=== PATIENT | male | born 1945 | race Caucasian/White ===

== ENCOUNTER 2017-09-08 16:45 | Inpatient (IN) ==
--- NOTE | 2017-09-09 00:42 | Internal Med History&Physical ---
Date of Encounter: 09/09/17 Time of Encounter: 00:41 Internal Medicine - H&P: HPI History of present illness: Mr. Wade is a 71 year old male with pmh of CHF, coronary artery disease, CVA, diabetes, hyperlipidemia, hypertension, kidney stones, myocardial infarction, renal disease, thyroid diseasea who presented with 1.5 week h/o Dyspnea with exertion. Positive orthopnea. PND. Also reports chest pain pressure like in character with exertion daily for the past 2 weeks. reports baseline cough. denies fevers/chills. Past Med Surg Social Fam HX - Past Medical History Medical history: CHF, coronary artery disease, CVA, diabetes, hyperlipidemia, hypertension, kidney stones, myocardial infarction, renal disease, thyroid disease Additional medical history: left side cva Psychiatric history: no psych history - Past Surgical History Surgical History: cancer surgery, colectomy, coronary bypass (CABG), orthopedic , other Additional surgical history: colon CA - Social History Smoking Status: Never smoker Smokeless Tobacco Status: No Alcohol use: none Drug use: none - Family History Mother Name: stephanie wade Living Status: Age at : 83 Cause of : pneumonia Hx Family Cardiac Disorders: No Hx Family Respiratory Disorders: Yes Internal Medicine - H&P: Meds Aspirin Enteric Coated [Aspirin EC] 81 mg PO DAILY 09/08/17 [History] Brimonidine Tartrate/Timolol [Combigan Eye Drops] 1 drop OP BID 09/08/17 [ History] Brinzolamide 1% [Azopt] 1 drop OP TID 09/08/17 [History] Budesonide/Formoterol 80/4.5 [Symbicort 80/4.5] 2 puff IH BID 09/08/17 [History ] Carvedilol [Coreg] 6.25 mg PO BIDWM 09/08/17 [History] Clopidogrel [Plavix] 75 mg PO DAILY 09/08/17 [History] Cyclobenzaprine [Flexeril] 10 mg PO TID PRN 09/08/17 [History] Diclofenac Sodium [Voltaren] 4 gm TP QID 09/08/17 [History] DiphenhydraMINE [Benadryl] 25 mg PO Q6HR PRN 09/08/17 [History] Ergocalciferol (VITAMIN D2) [Vitamin D2] 50,000 unit PO 2XW 09/08/17 [History] Esomeprazole Magnesium [Nexium] 40 mg PO DAILY 09/08/17 [History] Fenofibrate Nanocrystallized [Fenofibrate] 145 mg PO DAILY 09/08/17 [History] Fluticasone Propionate Nasal [Flonase] 1 - 2 spray NS DAILY 09/08/17 [History] Furosemide [Lasix] 40 mg PO QWEEK 09/08/17 [History] Gabapentin [Neurontin] 800 mg PO TID 09/08/17 [History] Insulin ASPART [Novolog Flexpen] 0 unit SQ TID 09/08/17 [History] Insulin Glargine,Hum.rec.anlog [Basaglar Kwikpen U-100] 50 unit SQ BID 09/08/17 [History] Isosorbide MONOnitrate (24 HR) [Imdur] 60 mg PO DAILY 09/08/17 [History] Latanoprost [Xalatan] 1 drop OP DAILY 09/08/17 [History] Levothyroxine [Synthroid] 150 mcg PO DAILY 09/08/17 [History] Lovastatin 40 mg PO DAILY 09/08/17 [History] Mirabegron [Myrbetriq] 50 mg PO DAILY 09/08/17 [History] Oxycodone HCl/Acetaminophen [Percocet 5-325 mg Tablet] 1 each PO QID PRN [History] Tamsulosin [Flomax] 0.4 mg PO DAILY 09/08/17 [History] Valsartan [Diovan] 320 mg PO DAILY 09/08/17 [History] hydrALAZINE [HydrALAZINE] 10 mg PO TID 09/08/17 [History] 3 Allergy/AdvReac Type Severity Reaction Status Date / Time No Known Allergies Allergy Verified 10/28/14 16:22 All Systems PM: A 10-system review of systems was performed and is negative for pertinent findings except as documented above in the HPI. - Constitutional Vitals: Temp Pulse Resp BP Pulse Ox 98.1 F 71 20 176/92 97 09/09/17 00:00 09/09/17 00:00 09/09/17 00:00 09/09/17 00:00 09/09/17 00:00 Internal Med - H&P Results - Labs CBC & Chem 7: 09/09/17 03:23 09/09/17 03:23 - Assessment and plan (1) Congestive heart failure Current Visit: No Status: Acute Assessment and plan: ASSESSMENT: - SOB associated with CP r/o CHF exacerbation due to DD R/O ischemia Noncompliance URTI PLAN: - CPP x 1 more, 8 hr after the 1st one - EKG in AM - ASA - O2 to keep SpO2 > 92% - Lasix 40 mg IV BID - Aerosols UD q 4 hr - UA - 2D Echo - CBCD, BMP in AM - Fasting lipids - Tylenol 650 mg PO q 4-6 hr PRN pain - Home meds - Heparin 5000 U SQ BID Qualifiers: Heart failure type: unspecified Heart failure chronicity: acute Qualified Code(s): I50.9 - Heart failure, unspecified (2) Chest pain Current Visit: Yes Status: Acute (3) Hyperlipidemia Current Visit: Yes Status: Acute (4) Diabetes mellitus Current Visit: Yes Status: Acute (5) Chronic kidney disease (CKD) Current Visit: Yes Status: Acute Assessment and plan: The creatinine is stable around baseline we will continue to monitor avoid nephrotoxic meds and renal dosing of medication as better current EGFR (6) Hypothyroidism Current Visit: Yes Status: Acute (7) DVT prophylaxis Current Visit: Yes Status: Acute Assessment and plan: heparin 5000 BID - Time Spent With Patient Total time spent is greater than 50% in coordination of care (as documented) at patient's floor/unit and/or counseling patient:
[2017-09-09] MEDS ORDERED: Naloxone 0.4 MG/ML INJ IVP PRN (02:55)
[2017-09-09 03:44] LABS: Hematocrit 33.3 % (37.5-50.1); Hemoglobin 10.9 g/dL (12.9-16.9); Mean Corpuscular HGB Conc 32.7 g/dL (31.6-35.5); Mean Corpuscular Hemoglobin 30.2 pg (28.0-33.3); Mean Corpuscular Volume 92.2 fL (83.0-100.0); Platelet Count 157 K/mcL (140-400); Red Blood Count 3.61 M/mcL (4.19-5.50); Red Cell Distribution Width 14.4 % (11.5-14.5)
[2017-09-09 03:59] LABS: Albumin 3.8 g/dL (3.5-5.7); Albumin/Globulin Ratio 1.3 (1.1-2.2); Bilirubin,Total 0.6 mg/dL (0.3-1.0); Calcium 9.7 mg/dL (8.6-10.3); Chol/HDL Ratio 4.4 (0-4.9); Globulin 2.9 g/dL (2.4-3.5); Magnesium 2.1 mg/dL (1.6-2.6); Phosphorous 3.8 mg/dL (2.7-4.5); Potassium 3.9 mEq/L (3.5-5.1); Prothrombin Time 11.8 Seconds (9.4-12.1); Total Protein 6.7 g/dL (6.4-8.9)
[2017-09-09 04:02] LABS: Activated Partial Thrombo Time 21.9 Seconds (26.0-36.0)
[2017-09-09] MEDS ORDERED: D5% in Water 1,000 ML IVC PRN (06:24)
[2017-09-09] MEDS ORDERED: *HR* Dextrose 50 % in Water (Syg) 50 ML SYRINGE IVP PRN (06:24)
[2017-09-09] MEDS ORDERED: Dextrose Gel 15 GM/37.5 ML TUBE PO PRN ×2 (06:24)
[2017-09-09] MEDS: Budesonide/Formoterol 80/4.5 MDI IH SCH ×2 (07:45→22:25)
[2017-09-09 08:01] LABS: Estimated Average Glucose 140 mg/dl; Hemoglobin A1C 6.5 %
[2017-09-09] MEDS: Insulin LISPRO 300 UNITS/3 ML VIAL SQ SCH ×4 (08:30→21:26)
[2017-09-09] MEDS: Brinzolamide 1% 10 ML BOTTLE BOTH EYES SCH ×3 (08:49→21:25)
[2017-09-09] MEDS: Latanoprost 2.5 ML BOTTLE BOTH EYES SCH (08:50)
[2017-09-09] MEDS: Fluticasone Propionate Nasal 50 MCG/SPRAY BOTTLE NS SCH (08:51)
[2017-09-09] MEDS: Aspirin Enteric Coated 81 MG Tablet PO SCH (08:52)
[2017-09-09] MEDS: Gabapentin 400 MG CAPSULE PO SCH ×3 (08:52→21:24)
[2017-09-09] MEDS: Fenofibrate 54 MG TABLET PO SCH (08:52)
[2017-09-09] MEDS: Valsartan 160 MG TABLET PO SCH (08:53)
[2017-09-09] MEDS: *HR* OxyCODONE/APAP 5/325 TABLET PO PRN ×3 (08:53→21:24)
[2017-09-09] MEDS: Isosorbide MONOnitrate (24 HR) 60 MG TAB.ER.24H PO SCH (08:53)
[2017-09-09] MEDS: Furosemide 40 MG/4 ML VIAL IVP SCH (08:53)
[2017-09-09] MEDS: Insulin DETEMIR 100 UNIT/ML X5UNITS SQ SCH ×2 (08:54→21:26)
[2017-09-09 08:55] LABS: Bilirubin,Urine Negative (Negative); Blood,Urine Negative (Negative); Clarity,Urine Clear (Clear); Color,Urine Yellow (Yellow); Glucose,Urine (UA) Normal (Normal); Ketones,Urine Negative (Negative); Leukocyte Esterase,Urine Negative (Negative); Nitrite,Urine Negative (Negative); Protein,Urine 30 mg/dL (Neg-Trace); Urobilinogen,Urine Normal (Normal)
[2017-09-09] MEDS: Diclofenac Sodium [Voltaren] 4 GM TP SCH ×4 (08:55→23:39)
[2017-09-09 08:59] LABS: Bacteria,Urine None Seen per hpf (None-Few); Hyaline Casts,Urine None Seen per lpf (None-Few); Squamous Epithelial Cell,Urine Moderate per lpf (None-Few); WBC,Urine 0-3 per hpf (0-3)
[2017-09-09] MEDS ORDERED: NON-FORMULARY MEDICATION 1 EACH EACH (Insulin Glargine,Hum.Rec.Anlog [Basaglar Kwikpen U-1 SQ SCH (09:00)
--- NOTE | 2017-09-09 17:35 | Event Note ---
Date of Encounter: 09/09/17 Time of Encounter: 09:45 71-year-old male with history of CAD/CABG, CHF, diabetes, hypertension, admitted with worsening shortness of breath. Patient is being treated for acute exacerbation of CHF. Seen and examined at bedside. Reports improvement in shortness of breath. Does have some leg swelling. Follows with cardiology in [place]. Chest- S1, S2 heard; Lungs are clear to auscultation B/L Acute CHF- continue diuresis with IV Lasix. Start fluid restriction and urine output monitoring. Follow-up echocardiogram. Continue beta verónica and nitrate. Telemetry monitoring. Serial troponins flat and adynamic, at around 0.06.
[2017-09-09] MEDS: *HR* Heparin 5,000 UNIT/ML VIAL SQ SCH (17:56)
[2017-09-10 04:32] LABS: Basophils % 0.6 %; Eosinophils # 0.2 K/mcL (0.0-0.6); Hematocrit 30.5 % (37.5-50.1); Immature Granulocytes % 0.2 % (0-4); Lymphocytes # 1.2 K/mcL (0.6-4.6); Lymphocytes % 25.5 %; Mean Corpuscular HGB Conc 32.8 g/dL (31.6-35.5); Mean Corpuscular Hemoglobin 30.9 pg (28.0-33.3); Mean Corpuscular Volume 94.1 fL (83.0-100.0); Mean Platelet Volume 11.4 fL (9.4-12.4); Monocytes # 0.6 K/mcL (0.0-1.3); Monocytes % 12.2 %; Neutrophils # 2.7 K/mcL (1.6-8.9); Platelet Count 156 K/mcL (140-400); Red Blood Count 3.24 M/mcL (4.19-5.50); Red Cell Distribution Width 14.2 % (11.5-14.5); Segmented Neutrophils % 57.5 %
[2017-09-10 04:54] LABS: Calcium 9.3 mg/dL (8.6-10.3); Magnesium 2.3 mg/dL (1.6-2.6); Potassium 4.3 mEq/L (3.5-5.1)
--- NOTE | 2017-09-10 06:21 | Electrocardiograph Report ---
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
[2017-09-10] MEDS: *HR* Heparin 5,000 UNIT/ML VIAL SQ SCH ×2 (06:34→16:59)
[2017-09-10] MEDS: Budesonide/Formoterol 80/4.5 MDI IH SCH ×2 (07:47→20:32)
[2017-09-10] MEDS: Insulin LISPRO 300 UNITS/3 ML VIAL SQ SCH ×4 (08:18→22:01)
[2017-09-10] MEDS: Aspirin Enteric Coated 81 MG Tablet PO SCH (08:19)
[2017-09-10] MEDS: Furosemide 40 MG/4 ML VIAL IVP SCH (08:19)
[2017-09-10] MEDS: Isosorbide MONOnitrate (24 HR) 60 MG TAB.ER.24H PO SCH (08:19)
[2017-09-10] MEDS: Valsartan 160 MG TABLET PO SCH (08:19)
[2017-09-10] MEDS: Gabapentin 400 MG CAPSULE PO SCH ×3 (08:19→22:01)
[2017-09-10] MEDS: Fenofibrate 54 MG TABLET PO SCH (08:19)
[2017-09-10] MEDS: Brinzolamide 1% 10 ML BOTTLE BOTH EYES SCH ×3 (08:22→22:01)
[2017-09-10] MEDS: Fluticasone Propionate Nasal 50 MCG/SPRAY BOTTLE NS SCH (08:22)
[2017-09-10] MEDS: Latanoprost 2.5 ML BOTTLE BOTH EYES SCH (08:23)
[2017-09-10] MEDS: Diclofenac Sodium [Voltaren] 4 GM TP SCH ×2 (08:23→19:49)
[2017-09-10] MEDS: Insulin DETEMIR 100 UNIT/ML X5UNITS SQ SCH (08:27)
--- NOTE | 2017-09-10 08:29 | Internal Med Progress Note ---
<Eileen Hernandez N - Last Filed: 09/10/17 18:40> Date of Encounter: 09/10/17 Time of Encounter: 09:40 - Assessment and plan (1) Congestive heart failure Current Visit: No Status: Acute Assessment and plan: Continue diuresis with lasix with strict I & O's and daily weights. He remains hypervolemic with moderate edema. Cumulative I's & O's are -240. Will monitor kidney function closely with daily BMP. Urine output relatively low; will reassess tomorrow and consider nephrology consult if not improved. Qualifiers: Heart failure type: unspecified Heart failure chronicity: acute Qualified Code(s): I50.9 - Heart failure, unspecified (2) Chronic kidney disease (CKD) Current Visit: Yes Status: Acute Qualifiers: Chronic kidney disease stage: unspecified stage Qualified Code(s): N18.9 - Chronic kidney disease, unspecified (3) Chest pain Current Visit: Yes Status: Resolved Assessment and plan: Resolved. Qualifiers: Qualified Code(s): R07.89 - Other chest pain; R07.81 - Pleurodynia (4) Hyperlipidemia Current Visit: Yes Status: Acute Assessment and plan: Continue home medication. Will check fasting lipids tomorrow morning. Qualifiers: Qualified Code(s): E78.5 - Hyperlipidemia, unspecified (5) Diabetes mellitus Current Visit: Yes Status: Acute Assessment and plan: Continue home insulin regimen along with sliding scale insulin and accuchecks ACHS. Consider changing insulin regimen if good glycemic control is not acheived. Qualifiers: Qualified Code(s): E11.9 - Type 2 diabetes mellitus without complications; Z79.4 - USP (current) use of insulin (6) DVT prophylaxis Current Visit: Yes Status: Acute Assessment and plan: Heparin BID. (7) Hypothyroidism Current Visit: Yes Status: Acute Assessment and plan: Continue home medication therapy. Qualifiers: Qualified Code(s): E03.9 - Hypothyroidism, unspecified - Time Spent With Patient Total time spent is greater than 50% in coordination of care (as documented) at patient's floor/unit and/or counseling patient: - Subjective Interval history: Mr. Wade is a 71-year old male who was admitted with an acute exacerbation of CHF after a 1.5 weeks of progressive exertional dyspnea. He reports improvement in symptoms today, though he is still having some shortness of breath with exertion. He denies any chest pain. He has bilateral lower extremity edema that is non-pitting, which he states is normal for him. He denies any fevers and reports a good appetite. He denies any new complaints or concerns today. - Constitutional Vitals: Temp Pulse Resp BP Pulse Ox 97.8 F 59 16 117/62 95 09/10/17 07:25 09/10/17 07:25 09/10/17 07:47 09/10/17 07:25 09/10/17 07:47 Exam: Patient is sleeping comfortably but rouses easily to voice. He is alert and answers questions appropriately and does not appear to be in distress. - Head Additional comments: Atraumatic and normocephalic. - Respiratory Additional comments: Clear to auscultation bilaterally. - Cardiovascular Additional comments: Regular rate and rhythm. Mild murmur appreciated. - Extremities Exam Additional comments: Bilateral lower extremity edema. Patient denies pain to palpation. - Neurological Exam Additional comments: Patient moves all four extremities spontaneously. No apparent focal deficits. Internal Medicine: Result - Labs CBC & Chem 7: 09/10/17 04:12 09/10/17 04:12 Labs: Short CBC 09/10/17 Range/Units 04:12 WBC 4.8 (4.3-11.1) K/mcL Hgb 10.0 L (12.9-16.9) g/dL Hct 30.5 L (37.5-50.1) % Plt Count 156 (140-400) K/mcL Neutrophils # 2.7 (1.6-8.9) K/mcL BMP 09/10/17 04:12 Sodium 141 Potassium 4.3 Chloride 107 Carbon Dioxide 26 BUN 46 H Creatinine 2.40 H Glucose 169 H Calcium 9.3 Cardiac Enzymes 09/09/17 09/09/17 Range/Units 09:13 14:55 Troponin I 0.06 H* 0.06 H* (< 0.04) ng/mL Urine 09/09/17 Range/Units 08:20 Urine Color Yellow (Yellow) Urine Clarity Clear (Clear) Urine pH 7.0 (5.0-8.0) pH Units Ur Specific [place] 1.020 (1.010-1.025) Urine Protein 30 H (Neg-Trace) mg/dL Urine Glucose (UA) Normal (Normal) mg/dL - ABG Interpretation ABG results: PT/INR, D-dimer PT 11.8 Seconds (9.4-12.1) 09/09/17 03:23 - Impressions Impressions Echocardiogram 09/09/17 06:44 Impressions: LVEF 60%. Normal LV chamber size and function. Mild concentric left ventricular hypertrophy. Mild left ventricular diastolic dysfunction. Normal right ventricular structure and function. Unable to estimate RVSP due to lack of TR jet. No significant valvular dysfunction. Left Ventricular Wall Motion: Rest Echo Findings All wall segments showed normal motion. Findings: Study Quality * Technically adequate exam. ECG Findings * Normal sinus rhythm. Left Ventricle * LVEF 60%. * Normal LV chamber size and function. * Mild concentric left ventricular hypertrophy. * Mild left ventricular diastolic dysfunction. Right Ventricle * Normal right ventricular structure and function. Left Atrium * Severely dilated left atrium. Right Atrium * Moderately dilated right atrium. Aortic Valve * Trileaflet aortic valve. * Mildly calcified aortic valve leaflets. * Trace aortic regurgitation. * No aortic stenosis. Mitral Valve * Normal mitral valve structure and function. * No mitral stenosis. * Trace mitral regurgitation. Tricuspid Valve * Normal tricuspid valve structure and function. * No tricuspid regurgitation. * Unable to estimate RVSP due to lack of TR jet. Pulmonic Valve * Normal pulmonic valve structure and function. * No pulmonic regurgitation. Aorta * Normally sized aortic root. Pericardium * The pericardium appears normal. IVC * Normal IVC dimensions and inspiratory collapse. Pulmonary Artery * Normal visualized portions of the main pulmonary artery. Consult Discharge Plan - Plan Referrals: Poly Rodrigues MD [Primary Care Provider] - <Rc Cruz - Last Filed: 09/10/17 19:00> Date of Encounter: 09/10/17 - Assessment and plan (1) Congestive heart failure Current Visit: No Status: Acute Qualifiers: Heart failure type: diastolic Heart failure chronicity: acute on chronic Qualified Code(s): I50.33 - Acute on chronic diastolic (congestive) heart failure (2) Chest pain Current Visit: Yes Status: Resolved Qualifiers: Chest pain type: chest pain on breathing Qualified Code(s): R07.1 - Chest pain on breathing; R07.81 - Pleurodynia (3) Hyperlipidemia Current Visit: Yes Status: Chronic Qualifiers: Hyperlipidemia type: mixed hyperlipidemia Qualified Code(s): E78.2 - Mixed hyperlipidemia (4) Diabetes mellitus Current Visit: Yes Status: Chronic Qualifiers: Diabetes mellitus type: type 2 Diabetes mellitus prison insulin use: with prison use Diabetes mellitus complication status: with hyperglycemia Qualified Code(s): E11.65 - Type 2 diabetes mellitus with hyperglycemia; Z79.4 - intermediate project manager (current) use of insulin (5) Chronic kidney disease (CKD) Current Visit: Yes Status: Chronic Qualifiers: Chronic kidney disease stage: stage 3 (moderate) Qualified Code(s): N18.3 - Chronic kidney disease, stage 3 (moderate) (6) DVT prophylaxis Current Visit: Yes Status: Acute (7) Hypothyroidism Current Visit: Yes Status: Chronic Qualifiers: Hypothyroidism type: acquired Qualified Code(s): E03.9 - Hypothyroidism, unspecified - Time Spent With Patient Total time spent is greater than 50% in coordination of care (as documented) at patient's floor/unit and/or counseling patient: - Constitutional Vitals: Temp Pulse Resp BP Pulse Ox 97.8 F 68 16 124/64 96 09/10/17 15:41 09/10/17 15:41 09/10/17 15:41 09/10/17 15:41 09/10/17 15:41 Internal Medicine: Result - Labs CBC & Chem 7: 09/10/17 04:12 09/10/17 04:12 Labs: Short CBC 09/10/17 Range/Units 04:12 WBC 4.8 (4.3-11.1) K/mcL Hgb 10.0 L (12.9-16.9) g/dL Hct 30.5 L (37.5-50.1) % Plt Count 156 (140-400) K/mcL Neutrophils # 2.7 (1.6-8.9) K/mcL BMP 09/10/17 04:12 Sodium 141 Potassium 4.3 Chloride 107 Carbon Dioxide 26 BUN 46 H Creatinine 2.40 H Glucose 169 H Calcium 9.3 - ABG Interpretation ABG results: PT/INR, D-dimer PT 11.8 Seconds (9.4-12.1) 09/09/17 03:23 - Attending Attestation I examined this patient and my medical decision-making was reviewed with the Resident Physician on 09/10/17. I agree with the documented findings, disposition and treatment plan as described except to the extent set forth below. Mr Wade is currently admitted for acute exac CHF. He remains moderate to high risk due to potential for worsening clinical status. Mr Wade is beginning to breathe better but still has a lot of fluid. No fever or chills. Edema still present. Lying back better. Exam alert Comfortable at rest Mucus membranes dry Heart distant Lungs with rales Abd soft Edema present I/P 1. CHF exac Further diagnoses and plan as above Anticipate d/c in 1-2 days
[2017-09-10] MEDS: *HR* OxyCODONE/APAP 5/325 TABLET PO PRN (22:04)
[2017-09-11 04:27] LABS: Potassium 4.7 mEq/L (3.5-5.1)
[2017-09-11] MEDS: *HR* Heparin 5,000 UNIT/ML VIAL SQ SCH ×2 (06:11→17:46)
--- NOTE | 2017-09-11 07:58 | Internal Med Progress Note ---
<Rc Cruz - Last Filed: 09/11/17 17:04> Date of Encounter: 09/11/17 - Assessment and plan (1) Congestive heart failure Current Visit: No Status: Acute Qualifiers: Heart failure type: diastolic Heart failure chronicity: acute on chronic Qualified Code(s): I50.33 - Acute on chronic diastolic (congestive) heart failure (2) Acute renal failure due to tubular necrosis Current Visit: Yes Status: Acute Assessment and plan: Fluids. Nephrology to see today. Avoid nephrotoxins at this time. (3) KAYLEN (acute kidney injury) Current Visit: Yes Status: Acute (4) Hyperlipidemia Current Visit: Yes Status: Chronic Qualifiers: Hyperlipidemia type: mixed hyperlipidemia Qualified Code(s): E78.2 - Mixed hyperlipidemia (5) Diabetes mellitus Current Visit: Yes Status: Chronic Qualifiers: Diabetes mellitus type: type 2 Diabetes mellitus assisted insulin use: with assisted use Diabetes mellitus complication status: with hyperglycemia Qualified Code(s): E11.65 - Type 2 diabetes mellitus with hyperglycemia; Z79.4 - retirement (current) use of insulin (6) Chronic kidney disease (CKD) Current Visit: Yes Status: Chronic Qualifiers: Chronic kidney disease stage: stage 3 (moderate) Qualified Code(s): N18.3 - Chronic kidney disease, stage 3 (moderate) (7) DVT prophylaxis Current Visit: Yes Status: Acute (8) Hypothyroidism Current Visit: Yes Status: Chronic Qualifiers: Hypothyroidism type: acquired Qualified Code(s): E03.9 - Hypothyroidism, unspecified (9) Dyspepsia Current Visit: Yes Status: Acute - Time Spent With Patient Total time spent is greater than 50% in coordination of care (as documented) at patient's floor/unit and/or counseling patient: - Constitutional Vitals: Temp Pulse Resp BP Pulse Ox 98.1 F 67 16 141/83 98 09/11/17 15:57 09/11/17 15:57 09/11/17 15:57 09/11/17 15:57 09/11/17 15:57 Internal Medicine: Result - Labs CBC & Chem 7: 09/10/17 04:12 09/11/17 03:39 Labs: BMP 09/11/17 03:39 Sodium 140 Potassium 4.7 Chloride 106 Carbon Dioxide 25 BUN 68 H Creatinine 4.03 H Glucose 243 H Calcium 9.0 - ABG Interpretation ABG results: PT/INR, D-dimer PT 11.8 Seconds (9.4-12.1) 09/09/17 03:23 Consult Discharge Plan - Plan Referrals: Poly Rodrigues MD [Primary Care Provider] - - Attending Attestation I examined this patient and my medical decision-making was reviewed with the Resident Physician on 09/11/17. I agree with the documented findings, disposition and treatment plan as described except to the extent set forth below. Mr Wade is currently admitted for acute exac CHF. He has developed acute on chronic renal failure. He remains moderate to high risk due to potential for worsening clinical status. Mr Wade denies new issues. He feels his breathing is somewhat better. No fever or chills. Edema still present. Bowels OK. Exam alert Comfortable in chair. Mucus membranes dry Heart distant Lungs clear at this time Abd soft Edema present I/P 1. Acute CHF 2. KAYLEN Further diagnoses and plan as above. Nephology consulted for assistance with renal failure. <Eileen Hernandez N - Last Filed: 09/11/17 17:36> Date of Encounter: 09/11/17 Time of Encounter: 17:22 - Assessment and plan (1) Congestive heart failure Current Visit: No Status: Acute Assessment and plan: Discontinued diuresis due to suspected KAYLEN, as evidenced by his elevated creatinine. Cumulative I's & O's are -555 mL. Will continue to monitor clinically and provide supplemental oxygen via nasal canula. Qualifiers: Heart failure type: diastolic Heart failure chronicity: acute on chronic Qualified Code(s): I50.33 - Acute on chronic diastolic (congestive) heart failure (2) KAYLEN (acute kidney injury) Current Visit: Yes Status: Acute Assessment and plan: Discontinued lasix and began IV fluids at 75 mLs/hr. Plan to monitor renal function closely. BMP planned for tomorrow morning, along with urine creatinine , eosinophils, sodium, and urea nitrogen. Appreciate nephrology consult and assistance in managing this problem. (3) Chronic kidney disease (CKD) Current Visit: Yes Status: Chronic Assessment and plan: Suspect KAYLEN due to increase in serum creatinine and decreased eGFR. Nephrology consult placed for assistance with management, as detailed above. Qualifiers: Chronic kidney disease stage: stage 3 (moderate) Qualified Code(s): N18.3 - Chronic kidney disease, stage 3 (moderate) (4) Chest pain Current Visit: Yes Status: Resolved Qualifiers: Chest pain type: chest pain on breathing Qualified Code(s): R07.1 - Chest pain on breathing; R07.81 - Pleurodynia (5) Hyperlipidemia Current Visit: Yes Status: Chronic Assessment and plan: Continue home medication and follow-up with PCP after discharge. Qualifiers: Hyperlipidemia type: mixed hyperlipidemia Qualified Code(s): E78.2 - Mixed hyperlipidemia (6) Diabetes mellitus Current Visit: Yes Status: Chronic Assessment and plan: Changed medication schedule so patient will receive levemir at bedtime, which should allow for better morning glucose. Will continue to monitor and adjust as appropriate. Qualifiers: Diabetes mellitus type: type 2 Diabetes mellitus assisted insulin use: with roasterman use Diabetes mellitus complication status: with hyperglycemia Qualified Code(s): E11.65 - Type 2 diabetes mellitus with hyperglycemia; Z79.4 - intermediate project manager (current) use of insulin (7) Dyspepsia Current Visit: Yes Status: Acute Assessment and plan: Placed order for pepto-bismol PRN. (8) Hypothyroidism Current Visit: Yes Status: Chronic Assessment and plan: Continue home medications. Qualifiers: Hypothyroidism type: acquired Qualified Code(s): E03.9 - Hypothyroidism, unspecified (9) DVT prophylaxis Current Visit: Yes Status: Acute Assessment and plan: Heparin BID. - Time Spent With Patient Total time spent is greater than 50% in coordination of care (as documented) at patient's floor/unit and/or counseling patient: - Subjective Interval history: Mr. Wade is still experiencing some shortness of breath with exertion, but says that it is improving. He complains of some dyspepsia overnight. He states that his urine appears to be darker in color today. - Constitutional Vitals: Temp Pulse Resp BP Pulse Ox 97.8 F 71 16 156/77 96 09/11/17 07:14 09/11/17 07:14 09/11/17 07:14 09/11/17 07:14 09/11/17 07:14 Exam: Patient is awake and alert, sitting in the chair by the bedside. He is pleasant and conversational. He does not appear to be in acute distress. - Head Additional comments: Atraumatic and normocephalic. - Respiratory Additional comments: Lungs clear, though breath sounds are decreased bilaterally. - Cardiovascular Additional comments: Regular rate and rhythm. Mild murmur present. - Extremities Exam Additional comments: 1+ pitting edema in bilateral lower extremities. Internal Medicine: Result - Labs CBC & Chem 7: 09/10/17 04:12 09/11/17 03:39 Labs: BMP 09/11/17 03:39 Sodium 140 Potassium 4.7 Chloride 106 Carbon Dioxide 25 BUN 68 H Creatinine 4.03 H Glucose 243 H Calcium 9.0 - ABG Interpretation ABG results: PT/INR, D-dimer PT 11.8 Seconds (9.4-12.1) 09/09/17 03:23
[2017-09-11] MEDS: Insulin LISPRO 300 UNITS/3 ML VIAL SQ SCH ×4 (08:58→21:51)
[2017-09-11] MEDS: Gabapentin 400 MG CAPSULE PO SCH ×3 (08:59→21:49)
[2017-09-11] MEDS: Aspirin Enteric Coated 81 MG Tablet PO SCH (09:00)
[2017-09-11] MEDS: Isosorbide MONOnitrate (24 HR) 60 MG TAB.ER.24H PO SCH (09:00)
[2017-09-11] MEDS ORDERED: Insulin DETEMIR 100 UNIT/ML X5UNITS SQ SCH (09:00)
[2017-09-11] MEDS: Brinzolamide 1% 10 ML BOTTLE BOTH EYES SCH ×3 (09:00→21:52)
[2017-09-11] MEDS: Latanoprost 2.5 ML BOTTLE BOTH EYES SCH (09:00)
[2017-09-11] MEDS: Fluticasone Propionate Nasal 50 MCG/SPRAY BOTTLE NS SCH (09:00)
[2017-09-11] MEDS: Fenofibrate 54 MG TABLET PO SCH (09:05)
[2017-09-11] MEDS: 0.9 % Sodium Chloride 1,000 ML IVC SCH (09:21)
[2017-09-11] MEDS: Budesonide/Formoterol 80/4.5 MDI IH SCH ×2 (11:01→20:40)
--- NOTE | 2017-09-11 11:54 | Nephrology Consult Note ---
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 He underwent diuresis for CHF with worsening renal fxn. renal consulted to manage renal dysfunction. Scr noted today at 4.03, GFR 15 previously 1.79, GFR 38 on admission. Baseline GFR typically 30s. No NSAIDs. Lasix now discontinued with IVF started. No N/V/D Past Med Surg Social Fam HX - Past Medical History Medical history: CHF, coronary artery disease, CVA, diabetes, hyperlipidemia, hypertension, kidney stones, myocardial infarction, renal disease, thyroid disease Additional medical history: left side cva Psychiatric history: no psych history - Past Surgical History Surgical History: cancer surgery, colectomy, coronary bypass (CABG), orthopedic , other Additional surgical history: colon CA - Social History Smoking Status: Never smoker Smokeless Tobacco Status: No Alcohol use: none Drug use: none - Family History Mother Name: stephanie josé Living Status: Age at : 83 Cause of : pneumonia Hx Family Cardiac Disorders: No Hx Family Respiratory Disorders: Yes Medications and Allergies Aspirin Enteric Coated [Aspirin EC] 81 mg PO DAILY 09/08/17 [History] Brimonidine Tartrate/Timolol [Combigan Eye Drops] 1 drop OP BID 09/08/17 [ History] Brinzolamide 1% [Azopt] 1 drop OP TID 09/08/17 [History] Budesonide/Formoterol 80/4.5 [Symbicort 80/4.5] 2 puff IH BID 09/08/17 [History ] Carvedilol [Coreg] 6.25 mg PO BIDWM 09/08/17 [History] Clopidogrel [Plavix] 75 mg PO DAILY 09/08/17 [History] Cyclobenzaprine [Flexeril] 10 mg PO TID PRN 09/08/17 [History] Diclofenac Sodium [Voltaren] 4 gm TP QID 09/08/17 [History] DiphenhydraMINE [Benadryl] 25 mg PO Q6HR PRN 09/08/17 [History] Ergocalciferol (VITAMIN D2) [Vitamin D2] 50,000 unit PO TUFR 09/08/17 [History] Esomeprazole Magnesium [Nexium] 40 mg PO DAILY 09/08/17 [History] Fenofibrate Nanocrystallized [Fenofibrate] 145 mg PO DAILY 09/08/17 [History] Fluticasone Propionate Nasal [Flonase] 1 - 2 spray NS DAILY 09/08/17 [History] Furosemide [Lasix] 40 mg PO TU 09/08/17 [History] Gabapentin [Neurontin] 800 mg PO TID 09/08/17 [History] Insulin ASPART [Novolog Flexpen] 0 unit SQ TID 09/08/17 [History] Insulin Glargine,Hum.rec.anlog [Basaglar Kwikpen U-100] 45 - 50 unit SQ HS 09/08 [History] Isosorbide MONOnitrate (24 HR) [Imdur] 60 mg PO DAILY 09/08/17 [History] Latanoprost [Xalatan] 1 drop OP DAILY 09/08/17 [History] Levothyroxine [Synthroid] 150 mcg PO DAILY 09/08/17 [History] Mirabegron [Myrbetriq] 50 mg PO DAILY 09/08/17 [History] Oxycodone HCl/Acetaminophen [Percocet 5-325 mg Tablet] 1 each PO QID PRN [History] Tamsulosin [Flomax] 0.4 mg PO DAILY 09/08/17 [History] Valsartan [Diovan] 320 mg PO DAILY 09/08/17 [History] hydrALAZINE [HydrALAZINE] 10 mg PO TID 09/08/17 [History] Atorvastatin Calcium 80 mg PO DAILY 09/09/17 [History] 3 Allergy/AdvReac Type Severity Reaction Status Date / Time No Known Allergies Allergy Verified 09/09/17 09:39 Review of Systems All Systems: reviewed and no additional remarkable complaints except as stated ( 10 system reviewed and noted in HPI) Exam - Vital Signs Vital signs: Initial Vital Signs Temp Pulse Resp BP Pulse Ox 98 F 59 15 184/94 97 09/08/17 19:29 09/08/17 19:29 09/08/17 19:29 09/08/17 19:29 09/08/17 19:29 Vital Signs - Last 8 Hours Temp Pulse Resp BP Pulse Ox 09/11/17 11:18 97.9 F 72 16 108/50 98 09/11/17 07:14 97.8 F 71 16 156/77 96 09/11/17 04:00 97.1 F L 62 18 141/61 96 Intake and Output 09/10/17 09/11/17 09/11/17 23:59 07:59 15:59 Intake Total 0 / 0 150 / 150 120 / 120 Output Total 125 / 125 320 / 320 500 / 500 Balance -125 / -125 -170 / -170 -380 / -380 Intake: Oral 0 / 0 150 / 150 120 / 120 Output: Urine 125 / 125 320 / 320 500 / 500 Other: Meal Breakfast Percent of Meal Consumed 100% # Voids 0 Weight 119.8 kg Blood Glucose* 219 251 330 Patient Weight 09/11/17 23:59 Weight 119.8 kg Results - Lab Results 09/10/17 04:12 09/11/17 03:39 Most recent lab results Calcium 9.0 mg/dL (8.6-10.3) 09/11/17 03:39 Phosphorus 3.8 mg/dL (2.7-4.5) 09/09/17 03:23 Magnesium 2.3 mg/dL (1.6-2.6) 09/10/17 04:12 Consult Discharge Plan - Plan Referrals: Poly Rodrigues MD [Primary Care Provider] -
[2017-09-11 12:35] LABS: Uric Acid 6.1 mg/dL (2.3-7.6)
[2017-09-11] MEDS ORDERED: Bismuth Subsalicylate 120 ML ORAL SUSPENSION PO PRN (13:29)
[2017-09-11] MEDS: *HR* OxyCODONE/APAP 5/325 TABLET PO PRN ×2 (16:12→22:07)
[2017-09-11 17:04] LABS: Sodium, Urine 38.1 mEq/L
[2017-09-11] MEDS: Insulin DETEMIR 100 UNIT/ML X5UNITS SQ SCH (21:51)
[2017-09-12] MEDS: 0.9 % Sodium Chloride 1,000 ML IVC SCH (00:30)
[2017-09-12 05:02] LABS: Calcium 8.7 mg/dL (8.6-10.3); Potassium 4.6 mEq/L (3.5-5.1)
[2017-09-12] MEDS: *HR* Heparin 5,000 UNIT/ML VIAL SQ SCH ×2 (05:20→18:13)
--- NOTE | 2017-09-12 07:50 | Internal Med Progress Note ---
<Eileen Hernandez N - Last Filed: 09/12/17 15:52> Date of Encounter: 09/12/17 Time of Encounter: 07:50 - Assessment and plan (1) Congestive heart failure Current Visit: No Status: Acute Assessment and plan: IV fluids discontinued in light of 4kg weight gain. Patient is not currently experiencing any respiratory or cardiac symptoms, but should be closely monitored. Patient placed on fluid restricted diet, with daily maximum of 1500 mL. Due to obvious dependent edema, AUDRA bandages applied to bilateral lower extremities. Will continue to monitor clinical status closely. Qualifiers: Heart failure type: diastolic Heart failure chronicity: acute on chronic Qualified Code(s): I50.33 - Acute on chronic diastolic (congestive) heart failure (2) KAYLEN (acute kidney injury) Current Visit: Yes Status: Acute Assessment and plan: Serum creatinine has decreased and eGFR has improved slightly in response to IV fluids; however, fluids were discontinued due to patient overnight weight gain. Will continue to monitor kidney function and manage in coordination with nephrology. (3) Chronic kidney disease (CKD) Current Visit: Yes Status: Chronic Assessment and plan: Continue management per nephrology instructions. Qualifiers: Chronic kidney disease stage: stage 3 (moderate) Qualified Code(s): N18.3 - Chronic kidney disease, stage 3 (moderate) (4) Chest pain Current Visit: Yes Status: Resolved Qualifiers: Chest pain type: chest pain on breathing Qualified Code(s): R07.1 - Chest pain on breathing; R07.81 - Pleurodynia (5) Hyperlipidemia Current Visit: Yes Status: Chronic Assessment and plan: Continue home medication. Qualifiers: Hyperlipidemia type: mixed hyperlipidemia Qualified Code(s): E78.2 - Mixed hyperlipidemia (6) Diabetes mellitus Current Visit: Yes Status: Chronic Assessment and plan: Continue nightly insulin and accuchecks BID. 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 Qualifiers: Hypothyroidism type: acquired Qualified Code(s): E03.9 - Hypothyroidism, unspecified (8) DVT prophylaxis Current Visit: Yes Status: Acute Assessment and plan: Continue heparin BID. (9) Dyspepsia Current Visit: Yes Status: Resolved - Time Spent With Patient Total time spent is greater than 50% in coordination of care (as documented) at patient's floor/unit and/or counseling patient: - Subjective Interval history: Patient is sitting comfortably at the bedside. He reports further improvement in respiratory symptoms. He denies any new complaints. Nursing staff reports a 4kg weight gain today. - Constitutional Vitals: Temp Pulse Resp BP Pulse Ox 98.2 F 60 17 127/50 94 09/12/17 06:55 09/12/17 06:55 09/12/17 06:55 09/12/17 06:55 09/12/17 06:55 Exam: Patient is sitting comfortably in the chair at the bedside. He appears to be in no distress and is conversational. - Head Additional comments: Atraumatic and normocephalic. - Neck Additional comments: Soft and supple. No JVD or tracheal deviation. - Respiratory Additional comments: Diffusely diminished breath sounds bilaterally. Scattered wheezes present. - Cardiovascular Additional comments: Regular rate and rhythm. Murmur present. No gallops or rubs. - Extremities Exam Additional comments: Bilateral 1+ pitting edema in lower extremities. Internal Medicine: Result - Labs CBC & Chem 7: 09/10/17 04:12 09/12/17 03:36 Labs: BMP 09/12/17 03:36 Sodium 139 Potassium 4.6 Chloride 108 H Carbon Dioxide 24 BUN 70 H Creatinine 3.32 H Glucose 259 H Calcium 8.7 - ABG Interpretation ABG results: PT/INR, D-dimer PT 11.8 Seconds (9.4-12.1) 09/09/17 03:23 Consult Discharge Plan - Plan Referrals: Poly Rodrigues MD [Primary Care Provider] - 09/19/17 10:30 am Trent Ennis MD [Partnered Physician] - 10/01/17 1:10 pm Yakelin Adan MD [Partnered Physician] - 09/24/17 3:00 pm <Rc rCuz - Last Filed: 09/12/17 18:50> Date of Encounter: 09/12/17 - Assessment and plan (1) Congestive heart failure Current Visit: No Status: Acute Qualifiers: Heart failure type: diastolic Heart failure chronicity: acute on chronic Qualified Code(s): I50.33 - Acute on chronic diastolic (congestive) heart failure (2) Acute renal failure due to tubular necrosis Current Visit: Yes Status: Acute (3) Chest pain Current Visit: Yes Status: Resolved Qualifiers: Chest pain type: chest pain on breathing Qualified Code(s): R07.1 - Chest pain on breathing; R07.81 - Pleurodynia (4) Hyperlipidemia Current Visit: Yes Status: Chronic Qualifiers: Hyperlipidemia type: mixed hyperlipidemia Qualified Code(s): E78.2 - Mixed hyperlipidemia (5) Diabetes mellitus Current Visit: Yes Status: Chronic Qualifiers: Diabetes mellitus type: type 2 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 use: with terminal make up operator use Diabetes mellitus complication status: with hyperglycemia Qualified Code(s): E11.65 - Type 2 diabetes mellitus with hyperglycemia; 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 (6) Chronic kidney disease (CKD) Current Visit: Yes Status: Chronic Qualifiers: Chronic kidney disease stage: stage 3 (moderate) Qualified Code(s): N18.3 - Chronic kidney disease, stage 3 (moderate) (7) DVT prophylaxis Current Visit: Yes Status: Acute (8) Hypothyroidism Current Visit: Yes Status: Chronic Qualifiers: Hypothyroidism type: acquired Qualified Code(s): E03.9 - Hypothyroidism, unspecified (9) KAYLEN (acute kidney injury) Current Visit: Yes Status: Acute (10) Dyspepsia Current Visit: Yes Status: Resolved - Time Spent With Patient Total time spent is greater than 50% in coordination of care (as documented) at patient's floor/unit and/or counseling patient: - Constitutional Vitals: Temp Pulse Resp BP Pulse Ox 97.7 F 70 18 126/96 92 09/12/17 16:12 09/12/17 16:12 09/12/17 16:12 09/12/17 16:12 09/12/17 16:12 Internal Medicine: Result - Labs CBC & Chem 7: 09/10/17 04:12 09/12/17 03:36 Labs: BMP 09/12/17 03:36 Sodium 139 Potassium 4.6 Chloride 108 H Carbon Dioxide 24 BUN 70 H Creatinine 3.32 H Glucose 259 H Calcium 8.7 - ABG Interpretation ABG results: PT/INR, D-dimer PT 11.8 Seconds (9.4-12.1) 09/09/17 03:23 - Impressions Impressions Retroperitoneum Ultrasound 09/12/17 16:30 IMPRESSION: Unremarkable bilateral renal ultrasound. Incomplete evaluation of the urinary bladder due to lack of distention . Ureteral jets are not documented. D/ / 09/12/2017 18:01:11 Deepak Zuniga MD / [facility] Interpreting Provider: Deepak Zuniga MD - Attending Attestation I examined this patient and my medical decision-making was reviewed with the Resident Physician on 09/12/17. I agree with the documented findings, disposition and treatment plan as described except to the extent set forth below. Mr Wade is currently admitted for acute exac CHF and now has acute renal insufficiency. He remains moderate to high risk due to potential for worsening clinical status. Mr Wade is feeling OK. No pain at this time. Legs still swollen. No fever or chills. Breathing is somewhat better as well. Exam alert Comfortable at rest Mucus membranes dry Heart distant Diminished breath sounds. No rales. Edema present I/P 1. KAYLEN 2. CHF exac Further diagnoses and plan as above.
[2017-09-12] MEDS: Insulin LISPRO 300 UNITS/3 ML VIAL SQ SCH ×4 (08:19→21:06)
[2017-09-12] MEDS: Aspirin Enteric Coated 81 MG Tablet PO SCH (08:20)
[2017-09-12] MEDS: Gabapentin 400 MG CAPSULE PO SCH ×3 (08:20→21:05)
[2017-09-12] MEDS: Isosorbide MONOnitrate (24 HR) 60 MG TAB.ER.24H PO SCH (08:20)
[2017-09-12] MEDS: Fenofibrate 54 MG TABLET PO SCH (08:21)
[2017-09-12] MEDS: Latanoprost 2.5 ML BOTTLE BOTH EYES SCH (08:21)
[2017-09-12] MEDS: Fluticasone Propionate Nasal 50 MCG/SPRAY BOTTLE NS SCH (08:21)
[2017-09-12] MEDS: Brinzolamide 1% 10 ML BOTTLE BOTH EYES SCH ×3 (08:22→21:05)
[2017-09-12] MEDS: Budesonide/Formoterol 80/4.5 MDI IH SCH ×2 (10:26→20:01)
--- NOTE | 2017-09-12 13:18 | Nephrology Progress Note ---
Date of Encounter: 09/12/17 Time of Encounter: 13:16 - Assessment and Plan (1) Acute kidney injury superimposed on chronic kidney disease Current Visit: Yes Status: Acute KAYLEN most likely related to diuresis and dehydration upon admission. Uric Acid is 6.1. CPK 176. Retroperitoneal US ordered, not yet completed. Edema to bilateral lower extremities chronic, gets Unna boots/wraps every week at [facility] to help with swelling. (2) CKD (chronic kidney disease) stage 3, GFR 30-59 ml/min Current Visit: Yes Status: Acute Baseline in the 30's, follows with Dr. Bahena in the office. Subjective Principal diagnosis: Shortness of breath Interval history: Pt seen and examined. NAD. Objective - Vital Signs Vital signs: Vital Signs Temp Pulse Resp BP Pulse Ox 09/12/17 11:25 97.7 F 62 16 110/61 97 09/12/17 06:55 98.2 F 60 17 127/50 94 09/12/17 04:23 97.6 F 74 19 132/66 96 09/11/17 22:25 97.5 F L 55 15 127/61 98 09/11/17 20:40 17 98 09/11/17 15:57 98.1 F 67 16 141/83 98 Intake and Output 09/11/17 09/12/17 09/12/17 23:59 07:59 15:59 Intake Total 1000 / 1000 0 / 0 540 / 540 Output Total 0 / 0 1100 / 1100 400 / 400 Balance 1000 / 1000 -1100 / -1100 140 / 140 Intake: IV Fluids 1000 / 1000 0.9 % Sodium Chloride 1,000 ML 1000 / 1000 @ 75 mls/hr IVC .[id number] [facility] Rx #:[id number] Oral 0 / 0 0 / 0 540 / 540 Output: Urine 0 / 0 1100 / 1100 400 / 400 Other: Meal Lunch Percent of Meal Consumed 100% Weight 123.4 kg Blood Glucose* 315 208 295 Patient Weight 09/12/17 23:59 Weight 123.4 kg - General Appearance General appearance: Present: obese EENT: Present: ATNC, hearing intact, vision intact Neck: Present: supple Respiratory: Present: clear Cardiology: Present: edema (Soft +2 pitting edema noted, Pt states its chronic.) , normal S1, normal S2 Gastrointestinal: Present: normoactive bowel sounds, no tenderness, no guarding Integumentary: Present: no rash, warm and dry Neurologic: Present: alert and oriented x3 Psychiatric: Present: mood/affect appropriate, cooperative - Lab 09/10/17 04:12 09/12/17 03:36 Most recent lab results Calcium 8.7 mg/dL (8.6-10.3) 09/12/17 03:36 Phosphorus 3.8 mg/dL (2.7-4.5) 09/09/17 03:23 Magnesium 2.3 mg/dL (1.6-2.6) 09/10/17 04:12 Urine Creatinine 180 mg/dL 09/11/17 16:40 Urine Sodium 38.1 mEq/L 09/11/17 16:40 - VTE Documentation of Mechanical Device: Intermittent pneumatic compression device Consult Discharge Plan - Plan Referrals: Poly Rodrigues MD [Primary Care Provider] - 09/19/17 10:30 am Trent Ennis MD [Partnered Physician] - 10/01/17 1:10 pm Yakelin Adan MD [Partnered Physician] - 09/24/17 3:00 pm
[2017-09-12] MEDS: Insulin DETEMIR 100 UNIT/ML X5UNITS SQ SCH (21:06)
[2017-09-12] MEDS: *HR* OxyCODONE/APAP 5/325 TABLET PO PRN (23:42)
[2017-09-13 05:04] LABS: Calcium 9.3 mg/dL (8.6-10.3); Potassium 4.9 mEq/L (3.5-5.1)
[2017-09-13] MEDS: *HR* Heparin 5,000 UNIT/ML VIAL SQ SCH (06:34)
[2017-09-13] MEDS: Insulin LISPRO 300 UNITS/3 ML VIAL SQ SCH ×3 (08:21→17:28)
[2017-09-13] MEDS: Latanoprost 2.5 ML BOTTLE BOTH EYES SCH (08:22)
[2017-09-13] MEDS: Isosorbide MONOnitrate (24 HR) 60 MG TAB.ER.24H PO SCH (08:22)
[2017-09-13] MEDS: Brinzolamide 1% 10 ML BOTTLE BOTH EYES SCH (08:22)
[2017-09-13] MEDS: Fluticasone Propionate Nasal 50 MCG/SPRAY BOTTLE NS SCH (08:22)
[2017-09-13] MEDS: Aspirin Enteric Coated 81 MG Tablet PO SCH (08:23)
[2017-09-13] MEDS: Gabapentin 400 MG CAPSULE PO SCH (08:23)
[2017-09-13] MEDS ORDERED: Fenofibrate 54 MG TABLET PO SCH (09:00)
--- NOTE | 2017-09-13 09:16 | Internal Med Progress Note ---
Date of Encounter: 09/13/17 Time of Encounter: 09:16 - Assessment and plan (1) Congestive heart failure Current Visit: No Status: Acute Qualifiers: Heart failure type: diastolic Heart failure chronicity: acute on chronic Qualified Code(s): I50.33 - Acute on chronic diastolic (congestive) heart failure (2) Chest pain Current Visit: Yes Status: Resolved Qualifiers: Chest pain type: chest pain on breathing Qualified Code(s): R07.1 - Chest pain on breathing; R07.81 - Pleurodynia (3) Hyperlipidemia Current Visit: Yes Status: Chronic Qualifiers: Hyperlipidemia type: mixed hyperlipidemia Qualified Code(s): E78.2 - Mixed hyperlipidemia (4) Diabetes mellitus Current Visit: Yes Status: Chronic Qualifiers: Diabetes mellitus type: type 2 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: with mcc use Diabetes mellitus complication status: with hyperglycemia Qualified Code(s): E11.65 - Type 2 diabetes mellitus with hyperglycemia; 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 of 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 (5) Chronic kidney disease (CKD) Current Visit: Yes Status: Chronic Qualifiers: Chronic kidney disease stage: stage 3 (moderate) Qualified Code(s): N18.3 - Chronic kidney disease, stage 3 (moderate) (6) DVT prophylaxis Current Visit: Yes Status: Acute (7) Hypothyroidism Current Visit: Yes Status: Chronic Qualifiers: Hypothyroidism type: acquired Qualified Code(s): E03.9 - Hypothyroidism, unspecified (8) KAYLEN (acute kidney injury) Current Visit: Yes Status: Acute (9) Dyspepsia Current Visit: Yes Status: Resolved (10) Acute renal failure due to tubular necrosis Current Visit: Yes Status: Acute - Time Spent With Patient Total time spent is greater than 50% in coordination of care (as documented) at patient's floor/unit and/or counseling patient: - Subjective Interval history: Patient is sitting comfortably at the bedside. He reports further improvement in respiratory symptoms. He is agreeable to discharge, pending nephrology approval. - Constitutional Vitals: Temp Pulse Resp BP Pulse Ox 98.0 F 63 16 161/68 96 09/13/17 06:59 09/13/17 06:59 09/13/17 06:59 09/13/17 06:59 09/13/17 06:59 Exam: Patient is alert and oriented. He is pleasant and conversational. He does not appear to be in any distress. Internal Medicine: Result - Labs CBC & Chem 7: 09/10/17 04:12 09/13/17 04:21 Labs: BMP 09/13/17 04:21 Sodium 141 Potassium 4.9 Chloride 110 H Carbon Dioxide 24 BUN 58 H Creatinine 2.36 H Glucose 215 H Calcium 9.3 - ABG Interpretation ABG results: PT/INR, D-dimer PT 11.8 Seconds (9.4-12.1) 09/09/17 03:23 - Impressions Impressions Retroperitoneum Ultrasound 09/12/17 16:30 IMPRESSION: Unremarkable bilateral renal ultrasound. Incomplete evaluation of the urinary bladder due to lack of distention . Ureteral jets are not documented. D/ / 09/12/2017 18:01:11 Deepak Zuniga MD / [facility] Interpreting Provider: Deepak Zuniga MD - VTE Documentation of Mechanical Device: Intermittent pneumatic compression device Consult Discharge Plan - Plan Referrals: Poly Rodrigues MD [Primary Care Provider] - 09/19/17 10:30 am Trent Ennis MD [Partnered Physician] - 10/01/17 1:10 pm Yakelin Adan MD [Partnered Physician] - 09/24/17 3:00 pm
[2017-09-13] MEDS: Budesonide/Formoterol 80/4.5 MDI IH SCH (09:37)
--- NOTE | 2017-09-13 14:46 | Discharge Summary ---
- NOTES TO OUTPATIENT PROVIDER Notes to Outpatient Provider: Patient chief juvenile probation officer showed ectopy shortly prior to discharge. Magnesium and potassium evaluated. Potassium 5.5. Patient was given 10 units of insulin, 25 mL of 50% dextrose, and one dose of kayexylate. Repeat BMP order placed for 2 days from now. Patient was instructed to follow up with nephrology for further management. Date of Encounter: 09/13/17 Time of Encounter: 14:43 - Discharge Diagnosis (1) Congestive heart failure Priority: Primary Status: Acute Qualifiers: Heart failure type: diastolic Heart failure chronicity: acute on chronic Qualified Code(s): I50.33 - Acute on chronic diastolic (congestive) heart failure (2) Chest pain Priority: Secondary Status: Resolved Qualifiers: Chest pain type: chest pain on breathing Qualified Code(s): R07.1 - Chest pain on breathing; R07.81 - Pleurodynia (3) Hyperlipidemia Priority: Secondary Status: Chronic Qualifiers: Hyperlipidemia type: mixed hyperlipidemia Qualified Code(s): E78.2 - Mixed hyperlipidemia (4) Diabetes mellitus Priority: Secondary Status: Chronic Qualifiers: Diabetes mellitus type: type 2 Diabetes mellitus penitentiary insulin use: with linux system engineer use Diabetes mellitus complication status: with hyperglycemia Qualified Code(s): E11.65 - Type 2 diabetes mellitus with hyperglycemia; Z79.4 - integration aide (current) use of insulin (5) Chronic kidney disease (CKD) Priority: Secondary Status: Chronic Qualifiers: Chronic kidney disease stage: stage 3 (moderate) Qualified Code(s): N18.3 - Chronic kidney disease, stage 3 (moderate) (6) DVT prophylaxis Priority: Secondary Status: Acute (7) Hypothyroidism Priority: Secondary Status: Chronic Qualifiers: Hypothyroidism type: acquired Qualified Code(s): E03.9 - Hypothyroidism, unspecified (8) KAYLEN (acute kidney injury) Priority: Secondary Status: Acute (9) Dyspepsia Priority: Secondary Status: Resolved (10) Acute renal failure due to tubular necrosis Priority: Secondary Status: Acute Hospital course: Mr. Wade is a 71 year old male who presented to the ED on 09/09/2017 with a 1.5 w history of worsening SOB. He was admitted with exacerbation of CHF. Aggressive diuresis was started, from which patient experienced progressive improvement in breathing symptoms. He developed KAYLEN, as evidenced by elevated creatinine and decreased eGFR, on 09/11/2016. Nephrology consult was placed; diuresis was discontinued and IV fluids were started. Patient had a 4kg overnight weight gain on 10/13/2017. IV fluids were discontinued and patient was placed on fluid restricted diet with maximum of 1500mL fluid intake. Patient 's renal function continued to improve, and patient was discharged with nephrology approval on 09/13/2017. Discharge discussed with: patient, nurse - Time Spent with Patient Total time spent providing and/or coordinating discharge services: - Discharge Medications Home Medications: Aspirin Enteric Coated [Aspirin EC] 81 mg PO DAILY 09/08/17 [History] Brimonidine Tartrate/Timolol [Combigan 0.2%-0.5% Eye Drops] 1 drop OP BID [History] Brinzolamide 1% [Azopt] 1 drop OP TID 09/08/17 [History] Budesonide/Formoterol 80/4.5 [Symbicort 80/4.5] 2 puff IH BID 09/08/17 [History ] Carvedilol [Coreg] 6.25 mg PO BIDWM 09/08/17 [History] Clopidogrel [Plavix] 75 mg PO DAILY 09/08/17 [History] Cyclobenzaprine [Flexeril] 10 mg PO TID PRN 09/08/17 [History] Diclofenac Sodium [Voltaren] 4 gm TP QID 09/08/17 [History] DiphenhydraMINE [Benadryl] 25 mg PO Q6HR PRN 09/08/17 [History] Ergocalciferol (VITAMIN D2) [Vitamin D2] 50,000 unit PO TUFR 09/08/17 [History] Esomeprazole Magnesium [Nexium] 40 mg PO DAILY 09/08/17 [History] Fenofibrate Nanocrystallized [Fenofibrate] 145 mg PO DAILY 09/08/17 [History] Fluticasone Propionate Nasal [Flonase] 1 - 2 spray NS DAILY 09/08/17 [History] Gabapentin [Neurontin] 800 mg PO TID 09/08/17 [History] Insulin ASPART [Novolog Flexpen] 0 unit SQ TID 09/08/17 [History] Insulin Glargine,Hum.rec.anlog [Basaglar Kwikpen U-100] 45 - 50 unit SQ HS 09/08 [History] Isosorbide MONOnitrate (24 HR) [Imdur] 60 mg PO DAILY 09/08/17 [History] Latanoprost [Xalatan] 1 drop OP DAILY 09/08/17 [History] Levothyroxine [Synthroid] 150 mcg PO DAILY 09/08/17 [History] Mirabegron [Myrbetriq] 50 mg PO DAILY 09/08/17 [History] Oxycodone HCl/Acetaminophen [Percocet 5-325 mg Tablet] 1 each PO QID PRN [History] Tamsulosin [Flomax] 0.4 mg PO DAILY 09/08/17 [History] hydrALAZINE [HydrALAZINE] 10 mg PO TID 09/08/17 [History] Atorvastatin Calcium 80 mg PO DAILY 09/09/17 [History] Allergies/Adverse Reactions: 3 Allergy/AdvReac Type Severity Reaction Status Date / Time No Known Allergies Allergy Verified 09/09/17 09:39 Date of admission: 09/10/17 18:42 Primary care physician: Poly Rodrigues MD Consults: 09/10/17 12:00 Consult to Nurse Navigator [CONS] Routine Comment: CHF exac 09/11/17 08:23 Consult to Nephrology [CONS] Routine Consulting Provider: [facility]/JAYRO/JIM/SENTHIL Reason for Consult: Worsening KAYLEN in setting of CHF with volume overload Time Notified: 08:24 Call Completed: No Discharging clinician: Eileen Hernandez Anticipated date of discharge: 09/13/17 - Constitutional Vitals: Temp Pulse Resp BP Pulse Ox 97.6 F 63 17 121/61 95 09/13/17 11:57 09/13/17 11:57 09/13/17 11:57 09/13/17 11:57 09/13/17 11:57 General appearance: Present: cooperative, A&O X 3, pleasant, no acute distress - Head Head exam: Present: atraumatic, normal inspection, normocephalic - Respiratory Respiratory exam: Present: decreased breath sounds Additional comments: Decreased breath sounds with occasional wheeze. Patient demonstrates no accessory muscle use. - Cardiovascular Cardiovascular exam: Present: diastolic murmur, RRR - Extremities Exam Additional comments: 1+ pitting edema in bilateral lower extremities. - Patient Status Disposition: Home, Self-Care Condition: Fair Functional capacity at discharge: uses cane/walker Overall status at discharge: patient is progressing back to baseline - Discharge Instructions Instructions: Heart Failure (DC), Chest Pain (DC), Acute Kidney Injury (DC), Hypothyroidism (DC), Diabetes Mellitus Type 2 in Adults (DC) Follow Up With: Poly Rodrigues MD [Primary Care Provider] - 09/19/17 10:30 am Trent Ennis MD [Partnered Physician] - 10/01/17 1:10 pm Yakelin Adan MD [Partnered Physician] - 09/24/17 3:00 pm Additional Instructions: Follow up with your senior stereo compiler team lead as scheduled. Resume home medications, but DO NOT start taking lasix (furosemide) or diovan (valsartan) until you see your kidney specialist and are instructed to do so. Follow up with your PCP regarding blood sugar management. Return to emergency department if symptoms recur or if new concerns arise. - Diet and Activity Activity: increase activity as tolerated Diet: regular diet - VTE Documentation of Mechanical Device: Intermittent pneumatic compression device
[2017-09-13 15:52] VITALS: BP 156/58
[2017-09-13 15:52] LABS: Magnesium 2.5 mg/dL (1.6-2.6); Potassium 5.5 mEq/L (3.5-5.1)
[2017-09-13] MEDS ORDERED: Insulin Human Regular 10 UNIT in 0.9 % Sodium Chloride 10 ML IV ONE (16:19)
[2017-09-13] MEDS ORDERED: *HR* Dextrose 25% in Water (Syg) 10 ML SYRINGE IVP ONE (16:20)
--- NOTE | 2017-09-13 16:34 | Nephrology Progress Note ---
Date of Encounter: 09/13/17 Time of Encounter: 14:00 - Assessment and Plan (1) KAYLEN (acute kidney injury) Current Visit: Yes Status: Acute SCr improved at 2.36, GFR 27, not yet at baseline but ok to discharge Pt has followup appt with me next week and labs as well Hold diuretics and ARB till then Po fluids (2) CKD (chronic kidney disease) stage 3, GFR 30-59 ml/min Current Visit: Yes Status: Acute Subjective Principal diagnosis: Shortness of breath Interval history: Pt seen and examined eager to go home. LE edema noted without his regular leg wrapping Objective - Vital Signs Vital signs: Vital Signs Temp Pulse Resp BP Pulse Ox 09/13/17 15:49 97.8 F 60 18 156/58 96 09/13/17 11:57 97.6 F 63 17 121/61 95 09/13/17 09:38 16 96 09/13/17 06:59 98.0 F 63 16 161/68 96 09/13/17 04:08 65 16 155/95 95 09/12/17 20:09 98.8 F 72 15 148/75 96 09/12/17 20:02 16 97 Intake and Output 09/13/17 09/13/17 09/13/17 07:59 15:59 23:59 Intake Total 0 / 0 360 / 360 Output Total 1300 / 1300 500 / 500 Balance -1300 / -1300 -140 / -140 Intake: Oral 0 / 0 360 / 360 Output: Urine 1300 / 1300 500 / 500 Other: Meal Lunch Percent of Meal Consumed 100% Weight 124 kg Blood Glucose* 154 243 Patient Weight 09/13/17 23:59 Weight 124 kg - Lab 09/10/17 04:12 09/13/17 15:20 Most recent lab results Calcium 9.3 mg/dL (8.6-10.3) 09/13/17 04:21 Phosphorus 3.8 mg/dL (2.7-4.5) 09/09/17 03:23 Magnesium 2.5 mg/dL (1.6-2.6) 09/13/17 15:20 Urine Creatinine 180 mg/dL 09/11/17 16:40 Urine Sodium 38.1 mEq/L 09/11/17 16:40 - VTE Documentation of Mechanical Device: Intermittent pneumatic compression device Consult Discharge Plan - Plan Additional Instructions: Follow up with your end polisher as scheduled. Resume home medications, but DO NOT start taking lasix (furosemide) or diovan (valsartan) until you see your kidney specialist and are instructed to do so. Follow up with your PCP regarding blood sugar management. Return to emergency department if symptoms recur or if new concerns arise. Referrals: Poly Rodrigues MD [Primary Care Provider] - 09/19/17 10:30 am Trent Ennis MD [Partnered Physician] - 10/01/17 1:10 pm Yakelin Adan MD [Partnered Physician] - 09/24/17 3:00 pm
[2017-09-13] MEDS ORDERED: *HR* Dextrose 50 % in Water (Syg) 50 ML SYRINGE IVP ONE (16:41)
--- NOTE | 2017-09-13 19:11 | Event Note ---
Date of Encounter: 09/13/17 Time of Encounter: 13:30 I examined this patient and my medical decision-making was reviewed with the Resident Physician on 09/13/17. I agree with the documented findings, disposition and treatment plan as described except to the extent set forth below. Mr Wade has been admitted for acute exac CHF. He was diuresed and developed KAYLEN. He was given some IV fluids and seen by renal service. He had slow improve in his creatinine. Today he is feeling OK. He is afebrile and cleared for discharge with follow up next week. Prior to discharge he had some increased ectopy. K was elevated and he was treated prior to d/c and Kayexalate given for at home. Exam alert Comfortable Mucus membranes dry Heart distant Lungs clear now Edema same Plan DC home today. Please see discharge summary of this date for further diagnoses.
== END 2017-09-13 18:45 | disposition home or self-care (01) | DRG 291 ==
LOC: 2NENU → SUATTDRO 18:48
PROVIDERS: ADMIT Internal Medicine; ATTEND Internal Medicine

== ENCOUNTER 2019-03-17 17:21 | Inpatient (IN) ==
[2019-03-18] MEDS ORDERED: Naloxone 0.4 MG/ML INJ IVP PRN (06:50)
[2019-03-18] MEDS ORDERED: D5% in Water 1,000 ML IVC PRN (06:51)
[2019-03-18] MEDS ORDERED: Dextrose Gel 15 GM/37.5 ML TUBE PO PRN ×2 (06:51)
[2019-03-18] MEDS ORDERED: *HR* Dextrose 50 % in Water (Syg) 50 ML SYRINGE IVP PRN (06:51)
[2019-03-18] MEDS ORDERED: Vancomycin 1,750 MG in 0.9 % Sodium Chloride 250 ML IVPB SCH (07:00)
[2019-03-18] MEDS ORDERED: *HR* OxyCODONE Immed Rel 5 MG TABLET PO PRN (07:43)
[2019-03-18 08:22] LABS: Hematocrit 24.8 % (37.5-50.1); Hemoglobin 8.1 g/dL (12.9-16.9); Mean Corpuscular HGB Conc 32.7 g/dL (31.6-35.5); Mean Corpuscular Hemoglobin 31.3 pg (28.0-33.3); Mean Corpuscular Volume 95.8 fL (83.0-100.0); Platelet Count 175 K/mcL (140-400); Red Blood Count 2.59 M/mcL (4.19-5.50)
[2019-03-18 08:39] LABS: Calcium 8.8 mg/dL (8.6-10.3); Potassium 4.4 mEq/L (3.5-5.1)
[2019-03-18] MEDS: Insulin LISPRO 300 UNITS/3 ML VIAL SQ SCH ×4 (09:01→20:27)
[2019-03-18] MEDS: *HR* HYDROcodone/Acet 5/325 mg TABLET PO PRN ×2 (09:02→20:36)
[2019-03-18] MEDS: Piperacillin/Tazobactam 3.375 GM in 0.9 % Sodium Chloride Mini Bag 100 ML IVPB SCH ×2 (09:07→16:35)
[2019-03-18] MEDS: Gabapentin 400 MG CAPSULE PO SCH (16:36)
[2019-03-18] MEDS: carvediloL 6.25 MG TABLET PO SCH (16:36)
[2019-03-18] MEDS: Latanoprost 2.5 ML BOTTLE BOTH EYES SCH (20:18)
[2019-03-18] MEDS: Brinzolamide 1% 10 ML BOTTLE BOTH EYES SCH (20:28)
[2019-03-18] MEDS ORDERED: Insulin DETEMIR 100 UNIT/ML X5UNITS SQ SCH (21:00)
[2019-03-18] MEDS ORDERED: EYE BOTH EYES SCH (21:00)
[2019-03-18] MEDS ORDERED: COMBIGAN BOTH EYES SCH (21:00)
[2019-03-19] MEDS: Piperacillin/Tazobactam 3.375 GM in 0.9 % Sodium Chloride Mini Bag 100 ML IVPB SCH ×3 (00:18→17:24)
[2019-03-19] MEDS: *HR* HYDROcodone/Acet 5/325 mg TABLET PO PRN (02:19)
[2019-03-19 04:26] LABS: Basophils % 0.7 %; Eosinophils # 0.2 K/mcL (0.0-0.6); Eosinophils % 4.2 %; Hematocrit 25.3 % (37.5-50.1); Hemoglobin 7.9 g/dL (12.9-16.9); Immature Granulocytes % 0.2 % (0-4); Lymphocytes # 0.7 K/mcL (0.6-4.6); Lymphocytes % 14.7 %; Mean Corpuscular HGB Conc 31.2 g/dL (31.6-35.5); Mean Corpuscular Hemoglobin 31.7 pg (28.0-33.3); Mean Corpuscular Volume 101.6 fL (83.0-100.0); Mean Platelet Volume 11.5 fL (9.4-12.4); Monocytes # 0.5 K/mcL (0.0-1.3); Monocytes % 11.6 %; Neutrophils # 3.1 K/mcL (1.6-8.9); Platelet Count 183 K/mcL (140-400); Red Blood Count 2.49 M/mcL (4.19-5.50); Red Cell Distribution Width 13.9 % (11.5-14.5); Segmented Neutrophils % 68.6 %; White Blood Count 4.5 K/mcL (4.3-11.1)
[2019-03-19 04:46] LABS: Calcium 8.4 mg/dL (8.6-10.3); Magnesium 2.3 mg/dL (1.6-2.6); Phosphorous 3.4 mg/dL (2.7-4.5); Potassium 4.9 mEq/L (3.5-5.1)
[2019-03-19] MEDS: carvediloL 6.25 MG TABLET PO SCH ×2 (08:18→17:27)
[2019-03-19] MEDS: Gabapentin 400 MG CAPSULE PO SCH (08:18)
[2019-03-19] MEDS: Brinzolamide 1% 10 ML BOTTLE BOTH EYES SCH ×2 (08:20→20:53)
[2019-03-19] MEDS: Insulin LISPRO 300 UNITS/3 ML VIAL SQ SCH ×4 (08:29→20:49)
[2019-03-19 09:29] LABS: Hematocrit 27.6 % (37.5-50.1); Hemoglobin 8.7 g/dL (12.9-16.9)
[2019-03-19 16:46] LABS: Hematocrit 26.7 % (37.5-50.1); Hemoglobin 8.3 g/dL (12.9-16.9)
[2019-03-19] MEDS: Latanoprost 2.5 ML BOTTLE BOTH EYES SCH (20:52)
[2019-03-19] MEDS ORDERED: Insulin DETEMIR 100 UNIT/ML X5UNITS SQ SCH (21:00)
[2019-03-19 23:33] LABS: Hemoglobin 8.4 g/dL (12.9-16.9)
[2019-03-20] MEDS: Piperacillin/Tazobactam 3.375 GM in 0.9 % Sodium Chloride Mini Bag 100 ML IVPB SCH ×2 (00:06→08:18)
[2019-03-20] MEDS: *HR* HYDROcodone/Acet 5/325 mg TABLET PO PRN ×2 (02:39→21:34)
[2019-03-20 04:06] LABS: Basophils % 0.9 %; Eosinophils # 0.2 K/mcL (0.0-0.6); Hematocrit 24.7 % (37.5-50.1); Hemoglobin 8.3 g/dL (12.9-16.9); Immature Granulocytes % 0.4 % (0-4); Lymphocytes # 0.7 K/mcL (0.6-4.6); Lymphocytes % 15.4 %; Mean Corpuscular HGB Conc 33.6 g/dL (31.6-35.5); Mean Corpuscular Hemoglobin 31.9 pg (28.0-33.3); Mean Platelet Volume 11.2 fL (9.4-12.4); Monocytes # 0.6 K/mcL (0.0-1.3); Neutrophils # 3.1 K/mcL (1.6-8.9); Platelet Count 195 K/mcL (140-400); Red Cell Distribution Width 14.1 % (11.5-14.5); Segmented Neutrophils % 66.3 %; White Blood Count 4.6 K/mcL (4.3-11.1)
[2019-03-20 04:25] LABS: Calcium 8.3 mg/dL (8.6-10.3); Magnesium 2.2 mg/dL (1.6-2.6); Phosphorous 2.9 mg/dL (2.7-4.5); Potassium 4.6 mEq/L (3.5-5.1)
[2019-03-20] MEDS: Insulin LISPRO 300 UNITS/3 ML VIAL SQ SCH ×2 (07:32→12:54)
[2019-03-20] MEDS: Brinzolamide 1% 10 ML BOTTLE BOTH EYES SCH ×2 (08:20→22:34)
[2019-03-20] MEDS: carvediloL 6.25 MG TABLET PO SCH (08:21)
[2019-03-20] MEDS: Gabapentin 400 MG CAPSULE PO SCH ×2 (08:21→21:34)
[2019-03-20] MEDS ORDERED: Isosorbide MONOnitrate (24 HR) 60 MG TAB.ER.24H PO SCH (09:00)
[2019-03-20 14:13] LABS: Hematocrit 22.9 % (37.5-50.1); Hemoglobin 7.3 g/dL (12.9-16.9)
[2019-03-20] MEDS ORDERED: Bupivacaine/EPI 1:200k 0.25%PF 10 ML VIAL INFILT ONE (15:47)
[2019-03-20] MEDS ORDERED: Propofol 500 MG/50 ML INFUS..BTL ONE (15:57)
[2019-03-20] MEDS ORDERED: *HR* Propofol 200 MG/20 ML VIAL IVP ONE (15:59)
[2019-03-20] MEDS ORDERED: Lidocaine -MPF 2% 2 ML VIAL ONE ×2 (16:00→16:05)
[2019-03-20] MEDS ORDERED: *HR* FentaNYL (PF) 100 MCG/2 ML VIAL ONE (16:01)
[2019-03-20] MEDS ORDERED: Ondansetron 4 MG/2 ML VIAL ONE (16:04)
[2019-03-20] MEDS ORDERED: Vancomycin 1,000 MG VIAL ONE (16:05)
[2019-03-20] MEDS ORDERED: *HR* Dextrose 50 % in Water (Syg) 50 ML SYRINGE IVP PRN (18:22)
[2019-03-20] MEDS ORDERED: D5% in Water 1,000 ML IVC PRN (18:22)
[2019-03-20] MEDS ORDERED: Naloxone 0.4 MG/ML INJ IVP PRN (18:22)
[2019-03-20] MEDS ORDERED: Dextrose Gel 15 GM/37.5 ML TUBE PO PRN ×2 (18:22)
[2019-03-20] MEDS: *HR* OxyCODONE Immed Rel 5 MG TABLET PO PRN (18:50)
[2019-03-20 19:24] LABS: Hematocrit 24.3 % (37.5-50.1); Hemoglobin 7.9 g/dL (12.9-16.9)
[2019-03-20] MEDS ORDERED: Insulin LISPRO 300 UNITS/3 ML VIAL SQ SCH (21:00)
[2019-03-20] MEDS ORDERED: Insulin DETEMIR 100 UNIT/ML X5UNITS SQ SCH ×2 (21:00)
[2019-03-20 21:28] LABS: Bilirubin,Urine Negative (Negative); Blood,Urine Negative (Negative); Clarity,Urine Clear (Clear); Color,Urine Yellow (Yellow); Glucose,Urine (UA) 100 mg/dL (Normal); Ketones,Urine Negative (Negative); Leukocyte Esterase,Urine Negative (Negative); Nitrite,Urine Negative (Negative); Protein,Urine Negative (Neg-Trace); Specific Gravity,Urine 1.014 (1.010-1.025)
[2019-03-20] MEDS: Latanoprost 2.5 ML BOTTLE BOTH EYES SCH (21:37)
[2019-03-21] MEDS: Piperacillin/Tazobactam 3.375 GM in 0.9 % Sodium Chloride Mini Bag 100 ML IVPB SCH ×3 (00:31→09:57)
[2019-03-21] MEDS: *HR* OxyCODONE Immed Rel 5 MG TABLET PO PRN (00:31)
[2019-03-21 02:08] LABS: Hematocrit 23.4 % (37.5-50.1); Hemoglobin 7.5 g/dL (12.9-16.9)
[2019-03-21 02:29] LABS: Calcium 8.1 mg/dL (8.6-10.3); Potassium 4.5 mEq/L (3.5-5.1)
[2019-03-21] MEDS: *HR* HYDROcodone/Acet 5/325 mg TABLET PO PRN (05:28)
[2019-03-21 06:02] LABS: Hematocrit 27.4 % (37.5-50.1)
[2019-03-21] MEDS: carvediloL 6.25 MG TABLET PO SCH ×3 (07:51→16:20)
[2019-03-21] MEDS: Insulin LISPRO 300 UNITS/3 ML VIAL SQ SCH ×5 (07:51→23:48)
[2019-03-21] MEDS: Gabapentin 400 MG CAPSULE PO SCH ×3 (08:57→22:48)
[2019-03-21] MEDS: Isosorbide MONOnitrate (24 HR) 60 MG TAB.ER.24H PO SCH (08:58)
[2019-03-21] MEDS: Brinzolamide 1% 10 ML BOTTLE BOTH EYES SCH ×2 (09:22→22:48)
[2019-03-21 10:53] LABS: Hematocrit 24.4 % (37.5-50.1)
[2019-03-21] MEDS ORDERED: Acetaminophen IV 1,000 MG/100 ML INFUS..BTL IVPB ONE (12:03)
[2019-03-21 12:12] LABS: Basophils % 0.3 %; Eosinophils # 0.2 K/mcL (0.0-0.6); Eosinophils % 2.9 %; Hematocrit 24.7 % (37.5-50.1); Hemoglobin 7.7 g/dL (12.9-16.9); Immature Granulocytes % 0.7 % (0-4); Lymphocytes # 0.6 K/mcL (0.6-4.6); Lymphocytes % 8.9 %; Mean Corpuscular HGB Conc 31.2 g/dL (31.6-35.5); Mean Corpuscular Hemoglobin 31.4 pg (28.0-33.3); Mean Corpuscular Volume 100.8 fL (83.0-100.0); Mean Platelet Volume 10.7 fL (9.4-12.4); Monocytes # 0.8 K/mcL (0.0-1.3); Neutrophils # 5.3 K/mcL (1.6-8.9); Platelet Count 202 K/mcL (140-400); Red Blood Count 2.45 M/mcL (4.19-5.50); Red Cell Distribution Width 14.1 % (11.5-14.5); Segmented Neutrophils % 75.2 %
[2019-03-21] MEDS: Cefepime HCl 1,000 MG in 0.9 % Sodium Chloride Mini Bag 100 ML IVPB SCH ×2 (13:02→23:36)
[2019-03-21 13:42] LABS: Bilirubin,Urine Small (Negative); Blood,Urine Negative (Negative); Clarity,Urine Cloudy (Clear); Color,Urine Dark Yellow (Yellow); Glucose,Urine (UA) 250 mg/dL (Normal); Ketones,Urine Negative (Negative); Leukocyte Esterase,Urine Negative (Negative); Nitrite,Urine Negative (Negative); Protein,Urine Trace mg/dL (Neg-Trace); Specific Gravity,Urine 1.029 (1.010-1.025)
[2019-03-21 13:45] LABS: Bacteria,Urine None Seen per hpf (None-Few); Hyaline Casts,Urine None Seen per lpf (None-Few); RBC,Urine 0-3 per hpf (0-3); Squamous Epithelial Cell,Urine Many per lpf (None-Few); WBC,Urine 0-3 per hpf (0-3)
[2019-03-21] MEDS ORDERED: Acetaminophen 325 MG TABLET PO PRN (17:00)
[2019-03-21 17:08] LABS: Hematocrit 24.7 % (37.5-50.1); Hemoglobin 8.1 g/dL (12.9-16.9)
[2019-03-21] MEDS: Latanoprost 2.5 ML BOTTLE BOTH EYES SCH (22:48)
[2019-03-21] MEDS: Insulin DETEMIR 100 UNIT/ML X5UNITS SQ SCH (22:48)
[2019-03-22] MEDS: *HR* OxyCODONE Immed Rel 5 MG TABLET PO PRN (03:59)
[2019-03-22] MEDS: Cefepime HCl 1,000 MG in 0.9 % Sodium Chloride Mini Bag 100 ML IVPB SCH (05:35)
[2019-03-22] MEDS: Insulin LISPRO 300 UNITS/3 ML VIAL SQ SCH ×4 (05:35→21:19)
[2019-03-22 06:09] LABS: Basophils % 0.4 %; Eosinophils # 0.2 K/mcL (0.0-0.6); Eosinophils % 2.5 %; Hematocrit 23.2 % (37.5-50.1); Hemoglobin 7.1 g/dL (12.9-16.9); Immature Granulocytes % 0.4 % (0-4); Lymphocytes # 0.8 K/mcL (0.6-4.6); Lymphocytes % 11.7 %; Mean Corpuscular HGB Conc 30.6 g/dL (31.6-35.5); Mean Corpuscular Hemoglobin 30.9 pg (28.0-33.3); Mean Corpuscular Volume 100.9 fL (83.0-100.0); Mean Platelet Volume 10.8 fL (9.4-12.4); Monocytes # 0.7 K/mcL (0.0-1.3); Monocytes % 10.1 %; Neutrophils # 5.1 K/mcL (1.6-8.9); Platelet Count 175 K/mcL (140-400); Red Cell Distribution Width 14.2 % (11.5-14.5); Segmented Neutrophils % 74.9 %; White Blood Count 6.8 K/mcL (4.3-11.1)
[2019-03-22 06:33] LABS: Calcium 8.4 mg/dL (8.6-10.3); Potassium 4.4 mEq/L (3.5-5.1)
[2019-03-22] MEDS ORDERED: 0.9 % Sodium Chloride 250 ML IVC SCH (08:00)
[2019-03-22] MEDS: Isosorbide MONOnitrate (24 HR) 60 MG TAB.ER.24H PO SCH (09:03)
[2019-03-22] MEDS: carvediloL 6.25 MG TABLET PO SCH ×2 (09:03→17:41)
[2019-03-22] MEDS: Gabapentin 400 MG CAPSULE PO SCH ×3 (09:03→21:18)
[2019-03-22] MEDS: Brinzolamide 1% 10 ML BOTTLE BOTH EYES SCH ×2 (09:07→21:20)
[2019-03-22 18:03] LABS: Hematocrit 25.9 % (37.5-50.1); Hemoglobin 8.7 g/dL (12.9-16.9)
[2019-03-22] MEDS: Insulin DETEMIR 100 UNIT/ML X5UNITS SQ SCH (21:19)
[2019-03-22] MEDS: Latanoprost 2.5 ML BOTTLE BOTH EYES SCH (21:20)
[2019-03-23 05:09] LABS: Basophils % 0.5 %; Eosinophils # 0.2 K/mcL (0.0-0.6); Eosinophils % 3.1 %; Hematocrit 26.3 % (37.5-50.1); Hemoglobin 8.3 g/dL (12.9-16.9); Immature Granulocytes % 0.3 % (0-4); Lymphocytes # 0.7 K/mcL (0.6-4.6); Lymphocytes % 11.3 %; Mean Corpuscular HGB Conc 31.6 g/dL (31.6-35.5); Mean Corpuscular Hemoglobin 30.9 pg (28.0-33.3); Mean Corpuscular Volume 97.8 fL (83.0-100.0); Mean Platelet Volume 10.7 fL (9.4-12.4); Monocytes # 0.5 K/mcL (0.0-1.3); Monocytes % 8.7 %; Neutrophils # 4.7 K/mcL (1.6-8.9); Platelet Count 185 K/mcL (140-400); Red Blood Count 2.69 M/mcL (4.19-5.50); Red Cell Distribution Width 14.4 % (11.5-14.5); Segmented Neutrophils % 76.1 %; White Blood Count 6.2 K/mcL (4.3-11.1)
[2019-03-23 05:29] LABS: Calcium 8.3 mg/dL (8.6-10.3); Potassium 4.5 mEq/L (3.5-5.1)
[2019-03-23] MEDS ORDERED: (Ezetimibe [Zetia] 10 MG) PO SCH (09:00)
[2019-03-23] MEDS ORDERED: cefTRIAXone 1,000 MG in Water for inj. (sterile) 10 ML IVP SCH (09:00)
[2019-03-23] MEDS: Gabapentin 400 MG CAPSULE PO SCH (09:35)
[2019-03-23] MEDS: Isosorbide MONOnitrate (24 HR) 60 MG TAB.ER.24H PO SCH (09:35)
[2019-03-23] MEDS: carvediloL 6.25 MG TABLET PO SCH ×2 (09:35→18:23)
[2019-03-23] MEDS: Brinzolamide 1% 10 ML BOTTLE BOTH EYES SCH ×2 (09:35→23:11)
[2019-03-23] MEDS: Insulin LISPRO 300 UNITS/3 ML VIAL SQ SCH ×4 (09:36→23:28)
[2019-03-23] MEDS: Cefepime HCl 1,000 MG in 0.9 % Sodium Chloride Mini Bag 100 ML IVPB SCH ×2 (09:36→18:25)
[2019-03-23] MEDS ORDERED: Insulin DETEMIR 100 UNIT/ML X5UNITS SQ SCH (21:00)
[2019-03-23] MEDS: Latanoprost 2.5 ML BOTTLE BOTH EYES SCH (23:13)
[2019-03-24 05:08] LABS: Basophils % 0.6 %; Eosinophils # 0.2 K/mcL (0.0-0.6); Eosinophils % 4.7 %; Hematocrit 25.5 % (37.5-50.1); Hemoglobin 8.1 g/dL (12.9-16.9); Immature Granulocytes % 0.4 % (0-4); Lymphocytes # 0.8 K/mcL (0.6-4.6); Lymphocytes % 16.6 %; Mean Corpuscular HGB Conc 31.8 g/dL (31.6-35.5); Mean Corpuscular Hemoglobin 31.3 pg (28.0-33.3); Mean Corpuscular Volume 98.5 fL (83.0-100.0); Mean Platelet Volume 11.3 fL (9.4-12.4); Monocytes # 0.5 K/mcL (0.0-1.3); Monocytes % 11.6 %; Neutrophils # 3.1 K/mcL (1.6-8.9); Platelet Count 179 K/mcL (140-400); Red Blood Count 2.59 M/mcL (4.19-5.50); Red Cell Distribution Width 14.5 % (11.5-14.5); Segmented Neutrophils % 66.1 %; White Blood Count 4.6 K/mcL (4.3-11.1)
[2019-03-24 05:40] LABS: Calcium 8.4 mg/dL (8.6-10.3); Potassium 4.4 mEq/L (3.5-5.1)
[2019-03-24] MEDS: Cefepime HCl 1,000 MG in 0.9 % Sodium Chloride Mini Bag 100 ML IVPB SCH (06:16)
[2019-03-24] MEDS: Insulin LISPRO 300 UNITS/3 ML VIAL SQ SCH ×4 (08:26→21:39)
[2019-03-24] MEDS: Gabapentin 400 MG CAPSULE PO SCH (08:27)
[2019-03-24] MEDS: carvediloL 6.25 MG TABLET PO SCH ×2 (08:28→17:06)
[2019-03-24] MEDS: Isosorbide MONOnitrate (24 HR) 60 MG TAB.ER.24H PO SCH (08:28)
[2019-03-24] MEDS: Brinzolamide 1% 10 ML BOTTLE BOTH EYES SCH ×2 (08:29→21:36)
[2019-03-24] MEDS ORDERED: Insulin DETEMIR 100 UNIT/ML X5UNITS SQ SCH (21:00)
[2019-03-24] MEDS: Latanoprost 2.5 ML BOTTLE BOTH EYES SCH (21:38)
[2019-03-25 04:39] LABS: Basophils % 0.7 %; Eosinophils # 0.2 K/mcL (0.0-0.6); Eosinophils % 4.2 %; Hematocrit 26.6 % (37.5-50.1); Hemoglobin 8.5 g/dL (12.9-16.9); Immature Granulocytes % 0.7 % (0-4); Lymphocytes # 0.7 K/mcL (0.6-4.6); Lymphocytes % 13.6 %; Mean Corpuscular Hemoglobin 31.3 pg (28.0-33.3); Mean Corpuscular Volume 97.8 fL (83.0-100.0); Mean Platelet Volume 10.6 fL (9.4-12.4); Monocytes # 0.6 K/mcL (0.0-1.3); Monocytes % 11.8 %; Neutrophils # 3.8 K/mcL (1.6-8.9); Platelet Count 205 K/mcL (140-400); Red Blood Count 2.72 M/mcL (4.19-5.50); Red Cell Distribution Width 14.1 % (11.5-14.5); White Blood Count 5.4 K/mcL (4.3-11.1)
[2019-03-25 04:58] LABS: Calcium 8.5 mg/dL (8.6-10.3); Potassium 4.4 mEq/L (3.5-5.1)
[2019-03-25] MEDS: Insulin LISPRO 300 UNITS/3 ML VIAL SQ SCH ×4 (08:01→21:45)
[2019-03-25] MEDS: Gabapentin 400 MG CAPSULE PO SCH (08:02)
[2019-03-25] MEDS: carvediloL 6.25 MG TABLET PO SCH ×2 (08:02→17:56)
[2019-03-25] MEDS: Isosorbide MONOnitrate (24 HR) 60 MG TAB.ER.24H PO SCH (08:03)
[2019-03-25] MEDS: Brinzolamide 1% 10 ML BOTTLE BOTH EYES SCH ×2 (08:03→21:46)
[2019-03-25] MEDS ORDERED: Furosemide 20 MG/2 ML VIAL IVP ONE (16:39)
[2019-03-25] MEDS: Insulin DETEMIR 100 UNIT/ML X5UNITS SQ SCH (21:44)
[2019-03-25] MEDS: Latanoprost 2.5 ML BOTTLE BOTH EYES SCH (21:46)
[2019-03-25] MEDS: *HR* OxyCODONE Immed Rel 5 MG TABLET PO PRN (22:08)
[2019-03-26 07:00] LABS: Basophils % 0.9 %; Eosinophils # 0.3 K/mcL (0.0-0.6); Eosinophils % 5.8 %; Hematocrit 28.4 % (37.5-50.1); Hemoglobin 9.2 g/dL (12.9-16.9); Immature Granulocytes % 0.4 % (0-4); Lymphocytes % 22.7 %; Mean Corpuscular HGB Conc 32.4 g/dL (31.6-35.5); Mean Corpuscular Hemoglobin 30.6 pg (28.0-33.3); Mean Corpuscular Volume 94.4 fL (83.0-100.0); Mean Platelet Volume 10.7 fL (9.4-12.4); Monocytes # 0.4 K/mcL (0.0-1.3); Monocytes % 8.9 %; Neutrophils # 2.8 K/mcL (1.6-8.9); Platelet Count 219 K/mcL (140-400); Red Blood Count 3.01 M/mcL (4.19-5.50); Segmented Neutrophils % 61.3 %; White Blood Count 4.5 K/mcL (4.3-11.1)
[2019-03-26 07:45] LABS: Calcium 8.6 mg/dL (8.6-10.3); Potassium 4.1 mEq/L (3.5-5.1)
[2019-03-26] MEDS ORDERED: Aminoglycoside Consult 1 EACH MC ONE (08:52)
[2019-03-26] MEDS: Isosorbide MONOnitrate (24 HR) 60 MG TAB.ER.24H PO SCH (09:28)
[2019-03-26] MEDS: carvediloL 6.25 MG TABLET PO SCH ×2 (09:28→17:55)
[2019-03-26] MEDS: Insulin LISPRO 300 UNITS/3 ML VIAL SQ SCH ×4 (09:28→20:34)
[2019-03-26] MEDS: Gabapentin 400 MG CAPSULE PO SCH (09:29)
[2019-03-26] MEDS: Brinzolamide 1% 10 ML BOTTLE BOTH EYES SCH ×2 (09:30→20:33)
[2019-03-26] MEDS: Doxycycline 100 MG CAPSULE PO SCH ×2 (12:33→20:30)
[2019-03-26] MEDS: *HR* HYDROcodone/Acet 5/325 mg TABLET PO PRN (15:46)
[2019-03-26] MEDS: Insulin DETEMIR 100 UNIT/ML X5UNITS SQ SCH (20:33)
[2019-03-26] MEDS: Latanoprost 2.5 ML BOTTLE BOTH EYES SCH (20:33)
[2019-03-26] MEDS: *HR* OxyCODONE Immed Rel 5 MG TABLET PO PRN (21:33)
[2019-03-27 06:36] VITALS: BP 154/78
[2019-03-27 06:40] LABS: Basophils % 0.8 %; Eosinophils # 0.3 K/mcL (0.0-0.6); Eosinophils % 5.4 %; Hemoglobin 8.7 g/dL (12.9-16.9); Immature Granulocytes % 0.6 % (0-4); Lymphocytes % 20.7 %; Mean Corpuscular HGB Conc 32.2 g/dL (31.6-35.5); Mean Corpuscular Hemoglobin 30.7 pg (28.0-33.3); Mean Corpuscular Volume 95.4 fL (83.0-100.0); Mean Platelet Volume 10.8 fL (9.4-12.4); Monocytes # 0.5 K/mcL (0.0-1.3); Monocytes % 10.5 %; Platelet Count 219 K/mcL (140-400); Red Blood Count 2.83 M/mcL (4.19-5.50); Red Cell Distribution Width 14.1 % (11.5-14.5); White Blood Count 4.8 K/mcL (4.3-11.1)
[2019-03-27 06:56] LABS: Calcium 8.5 mg/dL (8.6-10.3); Potassium 4.1 mEq/L (3.5-5.1)
[2019-03-27] MEDS: Insulin LISPRO 300 UNITS/3 ML VIAL SQ SCH ×2 (08:21→12:22)
[2019-03-27] MEDS ORDERED: Aspirin 81 MG TAB.CHEW PO SCH (09:00)
[2019-03-27] MEDS: Gabapentin 400 MG CAPSULE PO SCH (09:09)
[2019-03-27] MEDS: carvediloL 6.25 MG TABLET PO SCH (09:10)
[2019-03-27] MEDS: Isosorbide MONOnitrate (24 HR) 60 MG TAB.ER.24H PO SCH (09:10)
[2019-03-27] MEDS: Doxycycline 100 MG CAPSULE PO SCH (09:10)
[2019-03-27] MEDS: Brinzolamide 1% 10 ML BOTTLE BOTH EYES SCH (09:11)
[2019-03-27] MEDS ORDERED: Furosemide 20 MG/2 ML VIAL IVP ONE (14:03)
== END 2019-03-27 16:30 | disposition home health service (06) | DRG 580 ==
LOC: 3ANU → SUATTDRO 21:00
PROVIDERS: ADMIT Family Medicine; ATTEND Internal Medicine

== ENCOUNTER 2020-09-26 02:31 | Inpatient (IN) ==
[2020-09-26] MEDS ORDERED: Isovue-370 500 ML BOTTLE IVP ONE (02:39)
[2020-09-26] MEDS ORDERED: Acetaminophen 325 MG TABLET PO PRN (02:44)
[2020-09-26] MEDS ORDERED: Ondansetron 4 MG/2 ML VIAL IVP PRN (02:44)
[2020-09-26] MEDS ORDERED: Naloxone 0.4 MG/ML INJ IVP PRN (02:44)
[2020-09-26] MEDS ORDERED: Dextrose Gel 15 GM/37.5 ML TUBE PO PRN ×2 (03:02)
[2020-09-26] MEDS ORDERED: D5% in Water 1,000 ML IVC PRN (03:02)
[2020-09-26] MEDS ORDERED: *HR* Dextrose 50 % in Water (Vial) 50 ML VIAL IVP PRN (03:02)
[2020-09-26 03:32] LABS: Basophils % 0.4 %; Eosinophils # 0.1 K/mcL (0.0-0.6); Eosinophils % 2.2 %; Hematocrit 28.4 % (37.5-50.1); Hemoglobin 8.9 g/dL (12.9-16.9); Immature Platelets 3.1 % (1.1-6.1); Lymphocytes # 0.5 K/mcL (0.6-4.6); Lymphocytes % 20.3 %; Mean Corpuscular HGB Conc 31.3 g/dL (31.6-35.5); Mean Corpuscular Hemoglobin 30.7 pg (28.0-33.3); Mean Corpuscular Volume 97.9 fL (83.0-100.0); Mean Platelet Volume 10.3 fL (9.4-12.4); Monocytes # 0.6 K/mcL (0.0-1.3); Monocytes % 23.7 %; Neutrophils # 1.2 K/mcL (1.6-8.9); Red Cell Distribution Width 13.7 % (11.5-14.5); Segmented Neutrophils % 53.4 %; White Blood Count 2.3 K/mcL (4.3-11.1)
[2020-09-26 03:40] LABS: INR 1.2; Platelet Count 98 K/mcL (140-400); Prothrombin Time 13.7 Seconds (9.4-12.1)
[2020-09-26 03:50] LABS: Albumin 3.2 g/dL (3.5-5.7); Albumin/Globulin Ratio 1.2 (1.1-2.2); Bilirubin,Total 0.6 mg/dL (0.3-1.0); Calcium 8.6 mg/dL (8.6-10.3); Globulin 2.6 g/dL (2.4-3.5); Magnesium 1.8 mg/dL (1.6-2.6); Potassium 3.8 mEq/L (3.5-5.1); Total Protein 5.8 g/dL (6.4-8.9)
[2020-09-26 04:24] LABS: Platelet Estimate Decreased (Normal)
[2020-09-26 04:45] LABS: Estimated Average Glucose 189 mg/dl; Hemoglobin A1C 8.2 %
[2020-09-26] MEDS ORDERED: Insulin DETEMIR 100 UNIT/ML X5UNITS SUBQ SCH (09:00)
[2020-09-26] MEDS: Insulin LISPRO 300 UNITS/3 ML VIAL SUBQ SCH ×4 (10:53→22:01)
[2020-09-26] MEDS: *HR* Enoxaparin 40 MG/0.4 ML SYRINGE SQ SCH (10:54)
[2020-09-26] MEDS: Zinc Sulfate 220 MG CAPSULE PO SCH ×2 (10:54→19:12)
[2020-09-26] MEDS ORDERED: Acetaminophen 650 MG RECTAL SUPP RC PRN (15:36)
[2020-09-26] MEDS: Ipratropium 1 PUFF INHALER IH SCH ×3 (16:28→23:42)
[2020-09-26] MEDS: 0.9 % Sodium Chloride 1,000 ML IVC SCH (17:18)
[2020-09-27 02:02] LABS: Basophils % 0.4 %; Eosinophils # 0.1 K/mcL (0.0-0.6); Eosinophils % 2.7 %; Hemoglobin 9.7 g/dL (12.9-16.9); Mean Corpuscular HGB Conc 32.3 g/dL (31.6-35.5); Mean Corpuscular Hemoglobin 31.7 pg (28.0-33.3); Mean Platelet Volume 10.9 fL (9.4-12.4); Monocytes # 0.4 K/mcL (0.0-1.3); Neutrophils # 1.3 K/mcL (1.6-8.9); Red Blood Count 3.06 M/mcL (4.19-5.50); Red Cell Distribution Width 13.9 % (11.5-14.5); Segmented Neutrophils % 56.9 %; White Blood Count 2.3 K/mcL (4.3-11.1)
[2020-09-27 02:03] LABS: Lymphocytes # 0.6 K/mcL (0.6-4.6); Platelet Count 94 K/mcL (140-400)
[2020-09-27] MEDS ORDERED: Acetaminophen 325 MG TABLET PO PRN ×3 (02:22→10:17)
[2020-09-27 03:02] LABS: Albumin 3.1 g/dL (3.5-5.7); Albumin/Globulin Ratio 1.2 (1.1-2.2); Bilirubin,Total 0.6 mg/dL (0.3-1.0); Calcium 8.1 mg/dL (8.6-10.3); Globulin 2.6 g/dL (2.4-3.5); Potassium 4.1 mEq/L (3.5-5.1); Total Protein 5.7 g/dL (6.4-8.9)
[2020-09-27] MEDS: Ipratropium 1 PUFF INHALER IH SCH ×5 (03:31→20:20)
[2020-09-27] MEDS: *HR* Enoxaparin 40 MG/0.4 ML SYRINGE SQ SCH (05:33)
[2020-09-27] MEDS: Zinc Sulfate 220 MG CAPSULE PO SCH (09:50)
[2020-09-27] MEDS: Insulin LISPRO 300 UNITS/3 ML VIAL SUBQ SCH ×4 (09:55→20:22)
[2020-09-27] MEDS: Aspirin 81 MG TAB.CHEW PO SCH (11:31)
[2020-09-27] MEDS: Isosorbide MONOnitrate (24 HR) 60 MG TAB.ER.24H PO SCH (11:31)
[2020-09-27] MEDS: 0.9 % Sodium Chloride 1,000 ML IVC SCH (12:37)
[2020-09-27] MEDS: *HR* OxyCODONE/APAP 5/325 TABLET PO PRN ×2 (15:06→22:10)
[2020-09-27] MEDS: carvediloL 6.25 MG TABLET PO SCH (18:40)
[2020-09-27] MEDS: Latanoprost 2.5 ML BOTTLE BOTH EYES SCH (18:42)
[2020-09-27] MEDS: Brinzolamide 1% 10 ML BOTTLE BOTH EYES SCH (20:21)
[2020-09-28] MEDS: Ipratropium 1 PUFF INHALER IH SCH ×7 (00:05→23:31)
[2020-09-28 04:01] LABS: Red Blood Count 2.85 M/mcL (4.19-5.50)
[2020-09-28 04:02] LABS: Basophils % 0.4 %; Eosinophils # 0.1 K/mcL (0.0-0.6); Eosinophils % 5.7 %; Hematocrit 27.6 % (37.5-50.1); Hemoglobin 8.9 g/dL (12.9-16.9); Lymphocytes # 0.5 K/mcL (0.6-4.6); Lymphocytes % 19.8 %; Mean Corpuscular HGB Conc 32.2 g/dL (31.6-35.5); Mean Corpuscular Hemoglobin 31.2 pg (28.0-33.3); Mean Corpuscular Volume 96.8 fL (83.0-100.0); Monocytes # 0.2 K/mcL (0.0-1.3); Monocytes % 10.1 %; Neutrophils # 1.5 K/mcL (1.6-8.9); Red Cell Distribution Width 13.5 % (11.5-14.5); White Blood Count 2.3 K/mcL (4.3-11.1)
[2020-09-28 04:05] LABS: Platelet Count 95 K/mcL (140-400)
[2020-09-28 04:18] LABS: Calcium 8.2 mg/dL (8.6-10.3); Potassium 4.2 mEq/L (3.5-5.1)
[2020-09-28 04:24] LABS: Platelet Estimate Decreased (Normal)
[2020-09-28] MEDS: *HR* Enoxaparin 40 MG/0.4 ML SYRINGE SQ SCH (06:05)
[2020-09-28] MEDS: Brinzolamide 1% 10 ML BOTTLE BOTH EYES SCH ×2 (08:12→23:49)
[2020-09-28] MEDS: Insulin LISPRO 300 UNITS/3 ML VIAL SUBQ SCH ×4 (08:12→23:47)
[2020-09-28] MEDS: Zinc Sulfate 220 MG CAPSULE PO SCH (08:31)
[2020-09-28] MEDS ORDERED: NON-FORMULARY MEDICATION 1 EACH EACH (Ezetimibe [Zetia] 10 MG Tablet) PO SCH (09:00)
[2020-09-28] MEDS: Finasteride 5 MG TABLET PO SCH (10:01)
[2020-09-28] MEDS: Isosorbide MONOnitrate (24 HR) 60 MG TAB.ER.24H PO SCH (10:01)
[2020-09-28] MEDS: carvediloL 6.25 MG TABLET PO SCH ×2 (10:01→15:43)
[2020-09-28] MEDS: Aspirin 81 MG TAB.CHEW PO SCH (10:01)
[2020-09-28] MEDS ORDERED: Acetaminophen IV 500 MG/50 ML BAG IVPB ONE (15:21)
[2020-09-28] MEDS ORDERED: Acetaminophen 325 MG TABLET PO PRN (15:50)
[2020-09-28] MEDS ORDERED: Remdesivir 200 MG in 0.9 % Sodium Chloride 100 ML IVPB ONE (16:00)
[2020-09-28 16:04] LABS: ABG Base Excess -2 mEq/L (-2 to 3); ABG HCO3 22 mEq/L (21-27); ABG Oxygen Saturation 91 % (95-98); ABG PCO2 34 mmHg (35-45); ABG PH 7.42 pH Units (7.32-7.45); ABG PO2 58 mmHg (85-104); ABG TCO2 23 mEq/L (20-26)
[2020-09-28] MEDS: Latanoprost 2.5 ML BOTTLE BOTH EYES SCH (16:17)
[2020-09-28 16:50] LABS: Albumin 3.1 g/dL (3.5-5.7); Albumin/Globulin Ratio 1.1 (1.1-2.2); Bilirubin,Direct 0.2 mg/dL (0.0-0.2); Bilirubin,Indirect 0.4 mg/dL (0.0-1.0); Bilirubin,Total 0.6 mg/dL (0.3-1.0); Globulin 2.7 g/dL (2.4-3.5); Total Protein 5.8 g/dL (6.4-8.9)
[2020-09-29] MEDS: Ipratropium 1 PUFF INHALER IH SCH ×6 (04:26→23:15)
[2020-09-29 04:52] LABS: Albumin/Globulin Ratio 1.1 (1.1-2.2); Bilirubin,Direct 0.2 mg/dL (0.0-0.2); Bilirubin,Indirect 0.4 mg/dL (0.0-1.0); Bilirubin,Total 0.6 mg/dL (0.3-1.0); Globulin 2.8 g/dL (2.4-3.5); Total Protein 5.8 g/dL (6.4-8.9)
[2020-09-29] MEDS: Aspirin 81 MG TAB.CHEW PO SCH (07:57)
[2020-09-29] MEDS: Finasteride 5 MG TABLET PO SCH (07:58)
[2020-09-29] MEDS: Zinc Sulfate 220 MG CAPSULE PO SCH (07:58)
[2020-09-29] MEDS: Isosorbide MONOnitrate (24 HR) 60 MG TAB.ER.24H PO SCH (07:59)
[2020-09-29] MEDS: carvediloL 6.25 MG TABLET PO SCH ×2 (07:59→16:30)
[2020-09-29] MEDS: *HR* Enoxaparin 40 MG/0.4 ML SYRINGE SQ SCH (08:00)
[2020-09-29] MEDS: Brinzolamide 1% 10 ML BOTTLE BOTH EYES SCH ×2 (08:03→20:48)
[2020-09-29] MEDS: Insulin LISPRO 300 UNITS/3 ML VIAL SUBQ SCH ×4 (08:07→20:49)
[2020-09-29 08:32] LABS: Hematocrit 29.5 % (37.5-50.1); Hemoglobin 9.2 g/dL (12.9-16.9); Immature Granulocytes % 0.5 % (0-4); Lymphocytes # 0.3 K/mcL (0.6-4.6); Lymphocytes % 7.3 %; Mean Corpuscular HGB Conc 31.2 g/dL (31.6-35.5); Mean Corpuscular Hemoglobin 30.5 pg (28.0-33.3); Mean Corpuscular Volume 97.7 fL (83.0-100.0); Mean Platelet Volume 11.3 fL (9.4-12.4); Monocytes # 0.3 K/mcL (0.0-1.3); Monocytes % 6.8 %; Neutrophils # 3.3 K/mcL (1.6-8.9); Red Blood Count 3.02 M/mcL (4.19-5.50); Red Cell Distribution Width 13.5 % (11.5-14.5); Segmented Neutrophils % 85.4 %; White Blood Count 3.8 K/mcL (4.3-11.1)
[2020-09-29 08:33] LABS: Platelet Count 95 K/mcL (140-400)
[2020-09-29 10:01] LABS: Calcium 8.2 mg/dL (8.6-10.3); Potassium 4.8 mEq/L (3.5-5.1)
[2020-09-29] MEDS ORDERED: Remdesivir 100 MG in 0.9 % Sodium Chloride 100 ML IVPB SCH (16:00)
[2020-09-29 16:19] LABS: Amorphous Sediment,Urine Few per hpf (None-Few); Bilirubin,Urine Negative (Negative); Blood,Urine Small (Negative); Clarity,Urine Turbid (Clear); Color,Urine Yellow (Yellow); Glucose,Urine (UA) >=1000 mg/dL (Normal); Hyaline Casts,Urine Few per lpf (None Seen); Ketones,Urine Negative (Negative); Leukocyte Esterase,Urine Negative (Negative); Mucus,Urine Few per lpf (None-Few); Nitrite,Urine Negative (Negative); PH,Urine 5.5 pH Units (5.0-8.0); Protein,Urine 70 mg/dL (Neg-Trace); RBC,Urine 15-30 per hpf (0-3); Specific Gravity,Urine 1.019 (1.010-1.025); Squamous Epithelial Cell,Urine Few per hpf (None-Few); Urobilinogen,Urine Normal (Normal); WBC,Urine 0-3 per hpf (0-3)
[2020-09-29] MEDS: dexAMETHasone 4 MG TABLET PO SCH (16:30)
[2020-09-29] MEDS: Latanoprost 2.5 ML BOTTLE BOTH EYES SCH (16:59)
[2020-09-29] MEDS ORDERED: Insulin DETEMIR 100 UNIT/ML X5UNITS SUBQ SCH (21:00)
[2020-09-30] MEDS: Ipratropium 1 PUFF INHALER IH SCH ×3 (03:28→11:50)
[2020-09-30 05:03] LABS: Basophils % 0.2 %; Hematocrit 30.5 % (37.5-50.1); Hemoglobin 9.7 g/dL (12.9-16.9); Immature Granulocytes % 0.2 % (0-4); Lymphocytes # 0.3 K/mcL (0.6-4.6); Lymphocytes % 5.3 %; Mean Corpuscular HGB Conc 31.8 g/dL (31.6-35.5); Mean Corpuscular Hemoglobin 30.7 pg (28.0-33.3); Mean Corpuscular Volume 96.5 fL (83.0-100.0); Mean Platelet Volume 11.3 fL (9.4-12.4); Monocytes # 0.2 K/mcL (0.0-1.3); Monocytes % 3.9 %; Neutrophils # 4.6 K/mcL (1.6-8.9); Platelet Count 109 K/mcL (140-400); Red Blood Count 3.16 M/mcL (4.19-5.50); Segmented Neutrophils % 90.4 %; White Blood Count 5.1 K/mcL (4.3-11.1)
[2020-09-30 05:23] LABS: Calcium 8.2 mg/dL (8.6-10.3); Magnesium 2.2 mg/dL (1.6-2.6); Phosphorous 2.7 mg/dL (2.7-4.5); Potassium 4.9 mEq/L (3.5-5.1)
[2020-09-30 05:24] LABS: Albumin 3.2 g/dL (3.5-5.7); Albumin/Globulin Ratio 1.1 (1.1-2.2); Bilirubin,Direct 0.1 mg/dL (0.0-0.2); Bilirubin,Indirect 0.5 mg/dL (0.0-1.0); Bilirubin,Total 0.6 mg/dL (0.3-1.0); Globulin 2.9 g/dL (2.4-3.5); Total Protein 6.1 g/dL (6.4-8.9)
[2020-09-30] MEDS: *HR* Enoxaparin 40 MG/0.4 ML SYRINGE SQ SCH (05:26)
[2020-09-30 05:44] LABS: Platelet Estimate Normal (Normal); Toxic Granulation Present (Not Present)
[2020-09-30] MEDS: Insulin LISPRO 300 UNITS/3 ML VIAL SUBQ SCH ×7 (08:47→20:48)
[2020-09-30] MEDS: Aspirin 81 MG TAB.CHEW PO SCH (08:52)
[2020-09-30] MEDS: carvediloL 6.25 MG TABLET PO SCH ×2 (08:52→17:03)
[2020-09-30] MEDS: Zinc Sulfate 220 MG CAPSULE PO SCH (08:52)
[2020-09-30] MEDS: dexAMETHasone 4 MG TABLET PO SCH (08:53)
[2020-09-30] MEDS: Isosorbide MONOnitrate (24 HR) 60 MG TAB.ER.24H PO SCH (08:53)
[2020-09-30] MEDS: Finasteride 5 MG TABLET PO SCH (08:53)
[2020-09-30] MEDS: Insulin DETEMIR 100 UNIT/ML X5UNITS SUBQ SCH ×2 (09:00→20:47)
[2020-09-30] MEDS ORDERED: amLODIPine 5 MG TABLET PO SCH (09:00)
[2020-09-30] MEDS: Brinzolamide 1% 10 ML BOTTLE BOTH EYES SCH ×2 (09:06→20:47)
[2020-09-30] MEDS ORDERED: Insulin Human Regular 10 UNIT in 0.9 % Sodium Chloride 10 ML IV ONE (10:32)
[2020-09-30] MEDS ORDERED: Ipratropium 1 PUFF INHALER IH PRN (15:11)
[2020-09-30] MEDS: Latanoprost 2.5 ML BOTTLE BOTH EYES SCH (17:04)
[2020-10-01] MEDS: *HR* Enoxaparin 40 MG/0.4 ML SYRINGE SQ SCH (05:33)
[2020-10-01] MEDS: Aspirin 81 MG TAB.CHEW PO SCH (07:55)
[2020-10-01] MEDS: Finasteride 5 MG TABLET PO SCH (07:55)
[2020-10-01] MEDS: carvediloL 6.25 MG TABLET PO SCH ×2 (07:55→16:58)
[2020-10-01] MEDS: amLODIPine 5 MG TABLET PO SCH (07:56)
[2020-10-01] MEDS: dexAMETHasone 4 MG TABLET PO SCH (07:58)
[2020-10-01] MEDS: Zinc Sulfate 220 MG CAPSULE PO SCH (07:58)
[2020-10-01] MEDS: Isosorbide MONOnitrate (24 HR) 60 MG TAB.ER.24H PO SCH (07:59)
[2020-10-01] MEDS: Brinzolamide 1% 10 ML BOTTLE BOTH EYES SCH ×2 (08:00→22:02)
[2020-10-01] MEDS: Insulin LISPRO 300 UNITS/3 ML VIAL SUBQ SCH ×7 (08:02→22:02)
[2020-10-01] MEDS: Insulin DETEMIR 100 UNIT/ML X5UNITS SUBQ SCH ×2 (08:11→22:01)
[2020-10-01 09:23] LABS: Albumin 3.2 g/dL (3.5-5.7); Albumin/Globulin Ratio 1.1 (1.1-2.2); Bilirubin,Direct 0.3 mg/dL (0.0-0.2); Bilirubin,Indirect 0.4 mg/dL (0.0-1.0); Bilirubin,Total 0.7 mg/dL (0.3-1.0); Total Protein 6.2 g/dL (6.4-8.9)
[2020-10-01 09:26] LABS: Calcium 8.4 mg/dL (8.6-10.3); Magnesium 2.2 mg/dL (1.6-2.6); Phosphorous 2.8 mg/dL (2.7-4.5); Potassium 4.8 mEq/L (3.5-5.1)
[2020-10-01] MEDS ORDERED: 0.9 % Sodium Chloride 250 ML IVC ONE (11:42)
[2020-10-01] MEDS ORDERED: 0.9 % Sodium Chloride 250 ML ONE (11:47)
[2020-10-01] MEDS: Latanoprost 2.5 ML BOTTLE BOTH EYES SCH (16:59)
[2020-10-02 06:15] LABS: Albumin/Globulin Ratio 1.1 (1.1-2.2); Bilirubin,Direct 0.1 mg/dL (0.0-0.2); Bilirubin,Indirect 0.5 mg/dL (0.0-1.0); Bilirubin,Total 0.6 mg/dL (0.3-1.0); Globulin 2.8 g/dL (2.4-3.5); Total Protein 5.8 g/dL (6.4-8.9)
[2020-10-02] MEDS: *HR* Enoxaparin 40 MG/0.4 ML SYRINGE SQ SCH (06:18)
[2020-10-02] MEDS: Aspirin 81 MG TAB.CHEW PO SCH (07:19)
[2020-10-02] MEDS: amLODIPine 5 MG TABLET PO SCH (07:19)
[2020-10-02] MEDS: Finasteride 5 MG TABLET PO SCH (07:19)
[2020-10-02] MEDS: Isosorbide MONOnitrate (24 HR) 60 MG TAB.ER.24H PO SCH (07:19)
[2020-10-02] MEDS: Zinc Sulfate 220 MG CAPSULE PO SCH (07:19)
[2020-10-02] MEDS: carvediloL 6.25 MG TABLET PO SCH ×2 (07:19→16:22)
[2020-10-02] MEDS: dexAMETHasone 4 MG TABLET PO SCH (07:19)
[2020-10-02] MEDS: Brinzolamide 1% 10 ML BOTTLE BOTH EYES SCH ×2 (07:20→20:57)
[2020-10-02] MEDS: Insulin DETEMIR 100 UNIT/ML X5UNITS SUBQ SCH ×2 (07:20→20:48)
[2020-10-02] MEDS: Insulin LISPRO 300 UNITS/3 ML VIAL SUBQ SCH ×7 (07:21→20:50)
[2020-10-02 09:07] LABS: Calcium 8.1 mg/dL (8.6-10.3); Potassium 4.1 mEq/L (3.5-5.1)
[2020-10-02 09:07] LABS: Magnesium 2.3 mg/dL (1.6-2.6); Phosphorous 2.5 mg/dL (2.7-4.5)
[2020-10-02] MEDS: Latanoprost 2.5 ML BOTTLE BOTH EYES SCH (16:47)
[2020-10-03 02:54] LABS: Albumin 3.2 g/dL (3.5-5.7); Albumin/Globulin Ratio 1.1 (1.1-2.2); Bilirubin,Direct 0.2 mg/dL (0.0-0.2); Bilirubin,Indirect 0.5 mg/dL (0.0-1.0); Bilirubin,Total 0.7 mg/dL (0.3-1.0); Calcium 8.3 mg/dL (8.6-10.3); Globulin 2.8 g/dL (2.4-3.5); Magnesium 2.4 mg/dL (1.6-2.6); Phosphorous 2.9 mg/dL (2.7-4.5); Potassium 4.5 mEq/L (3.5-5.1)
[2020-10-03] MEDS: *HR* Enoxaparin 40 MG/0.4 ML SYRINGE SQ SCH (06:32)
[2020-10-03] MEDS: Insulin DETEMIR 100 UNIT/ML X5UNITS SUBQ SCH ×2 (08:30→23:17)
[2020-10-03] MEDS: Finasteride 5 MG TABLET PO SCH (08:30)
[2020-10-03] MEDS: Brinzolamide 1% 10 ML BOTTLE BOTH EYES SCH ×2 (08:30→23:15)
[2020-10-03] MEDS: Zinc Sulfate 220 MG CAPSULE PO SCH (08:30)
[2020-10-03] MEDS: Isosorbide MONOnitrate (24 HR) 60 MG TAB.ER.24H PO SCH (08:30)
[2020-10-03] MEDS: Insulin LISPRO 300 UNITS/3 ML VIAL SUBQ SCH ×7 (08:30→23:16)
[2020-10-03] MEDS: amLODIPine 5 MG TABLET PO SCH (08:30)
[2020-10-03] MEDS: carvediloL 6.25 MG TABLET PO SCH ×2 (08:30→17:57)
[2020-10-03] MEDS: Aspirin 81 MG TAB.CHEW PO SCH (08:45)
[2020-10-03] MEDS: Latanoprost 2.5 ML BOTTLE BOTH EYES SCH (18:31)
[2020-10-03] MEDS: Gabapentin 300 MG CAPSULE PO SCH (23:19)
[2020-10-04] MEDS: *HR* Enoxaparin 40 MG/0.4 ML SYRINGE SQ SCH (05:42)
[2020-10-04] MEDS: Finasteride 5 MG TABLET PO SCH (09:17)
[2020-10-04] MEDS: carvediloL 6.25 MG TABLET PO SCH ×2 (09:18→18:30)
[2020-10-04] MEDS: Aspirin 81 MG TAB.CHEW PO SCH (09:18)
[2020-10-04] MEDS: Zinc Sulfate 220 MG CAPSULE PO SCH (09:18)
[2020-10-04] MEDS: Isosorbide MONOnitrate (24 HR) 60 MG TAB.ER.24H PO SCH (09:18)
[2020-10-04] MEDS: Gabapentin 300 MG CAPSULE PO SCH ×3 (09:18→21:01)
[2020-10-04] MEDS: amLODIPine 5 MG TABLET PO SCH (09:18)
[2020-10-04] MEDS: Insulin LISPRO 300 UNITS/3 ML VIAL SUBQ SCH ×7 (09:25→20:56)
[2020-10-04] MEDS: Insulin DETEMIR 100 UNIT/ML X5UNITS SUBQ SCH ×2 (09:28→21:01)
[2020-10-04] MEDS: Brinzolamide 1% 10 ML BOTTLE BOTH EYES SCH ×2 (09:40→20:56)
[2020-10-04 12:11] LABS: ABG Base Excess -1 mEq/L (-2 to 3); ABG HCO3 23 mEq/L (21-27); ABG Oxygen Saturation 94 % (95-98); ABG PCO2 32 mmHg (35-45); ABG PH 7.46 pH Units (7.32-7.45); ABG PO2 64 mmHg (85-104); ABG TCO2 24 mEq/L (20-26)
[2020-10-04] MEDS ORDERED: Furosemide 20 MG/2 ML VIAL IVP ONE (15:01)
[2020-10-04 17:16] LABS: Calcium 7.9 mg/dL (8.6-10.3); Potassium 4.2 mEq/L (3.5-5.1)
[2020-10-04] MEDS: dexAMETHasone 4 MG TABLET PO SCH (19:30)
[2020-10-04] MEDS: Latanoprost 2.5 ML BOTTLE BOTH EYES SCH (19:31)
[2020-10-05] MEDS: *HR* Enoxaparin 40 MG/0.4 ML SYRINGE SQ SCH (06:21)
[2020-10-05] MEDS: amLODIPine 5 MG TABLET PO SCH (07:49)
[2020-10-05] MEDS: Insulin DETEMIR 100 UNIT/ML X5UNITS SUBQ SCH ×2 (07:49→20:05)
[2020-10-05] MEDS: Zinc Sulfate 220 MG CAPSULE PO SCH (07:50)
[2020-10-05] MEDS: dexAMETHasone 4 MG TABLET PO SCH (07:50)
[2020-10-05] MEDS: Isosorbide MONOnitrate (24 HR) 60 MG TAB.ER.24H PO SCH (07:50)
[2020-10-05] MEDS: Gabapentin 300 MG CAPSULE PO SCH ×3 (07:50→20:05)
[2020-10-05] MEDS: carvediloL 6.25 MG TABLET PO SCH ×2 (07:50→15:32)
[2020-10-05] MEDS: Aspirin 81 MG TAB.CHEW PO SCH (07:51)
[2020-10-05] MEDS: Finasteride 5 MG TABLET PO SCH (07:51)
[2020-10-05] MEDS: Insulin LISPRO 300 UNITS/3 ML VIAL SUBQ SCH ×7 (07:52→20:06)
[2020-10-05] MEDS: Brinzolamide 1% 10 ML BOTTLE BOTH EYES SCH ×2 (07:57→20:05)
[2020-10-05 13:12] LABS: Hematocrit 32.6 % (37.5-50.1); Hemoglobin 10.5 g/dL (12.9-16.9); Mean Corpuscular HGB Conc 32.2 g/dL (31.6-35.5); Mean Corpuscular Hemoglobin 31.4 pg (28.0-33.3); Mean Corpuscular Volume 97.6 fL (83.0-100.0); Mean Platelet Volume 10.7 fL (9.4-12.4); Platelet Count 150 K/mcL (140-400); Red Blood Count 3.34 M/mcL (4.19-5.50); Red Cell Distribution Width 13.4 % (11.5-14.5)
[2020-10-05 13:16] LABS: White Blood Count 8.1 K/mcL (4.3-11.1)
[2020-10-05 13:30] LABS: Calcium 8.1 mg/dL (8.6-10.3); Magnesium 2.5 mg/dL (1.6-2.6); Phosphorous 4.1 mg/dL (2.7-4.5); Potassium 5.3 mEq/L (3.5-5.1)
[2020-10-05 13:48] LABS: Lymphocytes # 0.4 K/mcL (0.6-4.6); Monocytes # 0.4 K/mcL (0.0-1.3); Neutrophils # 7.3 K/mcL (1.6-8.9); Platelet Estimate Normal (Normal)
[2020-10-05] MEDS: Latanoprost 2.5 ML BOTTLE BOTH EYES SCH (15:33)
[2020-10-06] MEDS: *HR* Enoxaparin 40 MG/0.4 ML SYRINGE SQ SCH (05:47)
[2020-10-06] MEDS: Insulin LISPRO 300 UNITS/3 ML VIAL SUBQ SCH ×6 (10:40→20:46)
[2020-10-06] MEDS: Insulin DETEMIR 100 UNIT/ML X5UNITS SUBQ SCH ×3 (10:44→20:47)
[2020-10-06] MEDS: Brinzolamide 1% 10 ML BOTTLE BOTH EYES SCH ×2 (11:06→20:46)
[2020-10-06] MEDS: Isosorbide MONOnitrate (24 HR) 60 MG TAB.ER.24H PO SCH (11:14)
[2020-10-06] MEDS: Finasteride 5 MG TABLET PO SCH (11:14)
[2020-10-06] MEDS: Zinc Sulfate 220 MG CAPSULE PO SCH (11:14)
[2020-10-06] MEDS: Aspirin 81 MG TAB.CHEW PO SCH (11:14)
[2020-10-06] MEDS: carvediloL 6.25 MG TABLET PO SCH ×2 (11:15→16:57)
[2020-10-06] MEDS: amLODIPine 5 MG TABLET PO SCH (11:15)
[2020-10-06] MEDS: Gabapentin 300 MG CAPSULE PO SCH ×3 (11:15→20:47)
[2020-10-06] MEDS: Latanoprost 2.5 ML BOTTLE BOTH EYES SCH (16:58)
[2020-10-07] MEDS: *HR* Enoxaparin 40 MG/0.4 ML SYRINGE SQ SCH (05:06)
[2020-10-07] MEDS: Zinc Sulfate 220 MG CAPSULE PO SCH (08:46)
[2020-10-07] MEDS: Finasteride 5 MG TABLET PO SCH (08:46)
[2020-10-07] MEDS: Gabapentin 300 MG CAPSULE PO SCH ×3 (08:46→20:29)
[2020-10-07] MEDS: Aspirin 81 MG TAB.CHEW PO SCH (08:46)
[2020-10-07] MEDS: Isosorbide MONOnitrate (24 HR) 60 MG TAB.ER.24H PO SCH (08:46)
[2020-10-07] MEDS: amLODIPine 5 MG TABLET PO SCH (08:46)
[2020-10-07] MEDS: carvediloL 6.25 MG TABLET PO SCH ×2 (08:46→15:25)
[2020-10-07] MEDS: Brinzolamide 1% 10 ML BOTTLE BOTH EYES SCH ×2 (08:47→20:29)
[2020-10-07] MEDS: Insulin LISPRO 300 UNITS/3 ML VIAL SUBQ SCH ×4 (08:48→20:28)
[2020-10-07] MEDS: Insulin DETEMIR 100 UNIT/ML X5UNITS SUBQ SCH ×2 (08:57→20:28)
[2020-10-07 10:41] LABS: Basophils % 0.1 %; Hematocrit 30.5 % (37.5-50.1); Hemoglobin 10.4 g/dL (12.9-16.9); Immature Granulocytes % 0.4 % (0-4); Lymphocytes # 0.3 K/mcL (0.6-4.6); Lymphocytes % 2.4 %; Mean Corpuscular HGB Conc 34.1 g/dL (31.6-35.5); Mean Corpuscular Hemoglobin 31.7 pg (28.0-33.3); Mean Platelet Volume 10.9 fL (9.4-12.4); Monocytes # 0.3 K/mcL (0.0-1.3); Monocytes % 3.1 %; Neutrophils # 10.3 K/mcL (1.6-8.9); Platelet Count 140 K/mcL (140-400); Red Blood Count 3.28 M/mcL (4.19-5.50); White Blood Count 10.9 K/mcL (4.3-11.1)
[2020-10-07 11:02] LABS: Calcium 7.8 mg/dL (8.6-10.3); Potassium 4.3 mEq/L (3.5-5.1)
[2020-10-07 12:08] LABS: Platelet Estimate Normal (Normal)
[2020-10-07] MEDS ORDERED: Furosemide 20 MG/2 ML VIAL IVP ONE ×2 (15:06→15:10)
[2020-10-07] MEDS: Latanoprost 2.5 ML BOTTLE BOTH EYES SCH (15:26)
[2020-10-08] MEDS: *HR* Enoxaparin 40 MG/0.4 ML SYRINGE SQ SCH (06:01)
[2020-10-08] MEDS: Insulin DETEMIR 100 UNIT/ML X5UNITS SUBQ SCH ×3 (07:57→20:59)
[2020-10-08] MEDS: Gabapentin 300 MG CAPSULE PO SCH ×3 (07:58→20:58)
[2020-10-08] MEDS: amLODIPine 5 MG TABLET PO SCH (07:59)
[2020-10-08] MEDS: carvediloL 6.25 MG TABLET PO SCH ×2 (07:59→16:08)
[2020-10-08] MEDS: Finasteride 5 MG TABLET PO SCH (07:59)
[2020-10-08] MEDS: Zinc Sulfate 220 MG CAPSULE PO SCH (07:59)
[2020-10-08] MEDS: Aspirin 81 MG TAB.CHEW PO SCH (08:00)
[2020-10-08] MEDS: Brinzolamide 1% 10 ML BOTTLE BOTH EYES SCH ×2 (08:00→21:00)
[2020-10-08] MEDS: Isosorbide MONOnitrate (24 HR) 60 MG TAB.ER.24H PO SCH (08:00)
[2020-10-08] MEDS: Insulin LISPRO 300 UNITS/3 ML VIAL SUBQ SCH ×4 (08:02→21:00)
[2020-10-08 10:36] LABS: Basophils % 0.1 %; Hematocrit 32.1 % (37.5-50.1); Hemoglobin 10.3 g/dL (12.9-16.9); Immature Granulocytes % 0.9 % (0-4); Lymphocytes # 0.3 K/mcL (0.6-4.6); Lymphocytes % 2.9 %; Mean Corpuscular HGB Conc 32.1 g/dL (31.6-35.5); Mean Corpuscular Hemoglobin 30.5 pg (28.0-33.3); Mean Platelet Volume 10.6 fL (9.4-12.4); Monocytes # 0.5 K/mcL (0.0-1.3); Monocytes % 4.4 %; Neutrophils # 10.8 K/mcL (1.6-8.9); Platelet Count 142 K/mcL (140-400); Red Blood Count 3.38 M/mcL (4.19-5.50); Red Cell Distribution Width 13.2 % (11.5-14.5); Segmented Neutrophils % 91.7 %; White Blood Count 11.8 K/mcL (4.3-11.1)
[2020-10-08 10:51] LABS: Calcium 7.9 mg/dL (8.6-10.3); Magnesium 2.7 mg/dL (1.6-2.6); Phosphorous 2.5 mg/dL (2.7-4.5); Potassium 3.8 mEq/L (3.5-5.1)
[2020-10-08] MEDS: Latanoprost 2.5 ML BOTTLE BOTH EYES SCH (17:45)
[2020-10-09 05:04] LABS: Basophils % 0.1 %; Hematocrit 33.3 % (37.5-50.1); Hemoglobin 11.1 g/dL (12.9-16.9); Immature Granulocytes % 0.4 % (0-4); Lymphocytes # 0.5 K/mcL (0.6-4.6); Lymphocytes % 4.2 %; Mean Corpuscular HGB Conc 33.3 g/dL (31.6-35.5); Mean Corpuscular Hemoglobin 30.9 pg (28.0-33.3); Mean Corpuscular Volume 92.8 fL (83.0-100.0); Mean Platelet Volume 10.5 fL (9.4-12.4); Monocytes # 0.5 K/mcL (0.0-1.3); Monocytes % 4.7 %; Platelet Count 147 K/mcL (140-400); Red Blood Count 3.59 M/mcL (4.19-5.50); Red Cell Distribution Width 13.1 % (11.5-14.5); Segmented Neutrophils % 90.6 %; White Blood Count 11.2 K/mcL (4.3-11.1)
[2020-10-09 05:05] LABS: Neutrophils # 10.2 K/mcL (1.6-8.9)
[2020-10-09 05:25] LABS: BUN/Creatinine Ratio 50 (6-26); Blood Urea Nitrogen 65 mg/dL (8-23); Carbon Dioxide 22 mEq/L (23-29); Chloride 112 mEq/L (98-107); Glucose 233 mg/dL (70-105); Magnesium 2.7 mg/dL (1.6-2.6); Osmolality,Calculated 318 (280-300); Phosphorous 2.2 mg/dL (2.7-4.5); Potassium 4.1 mEq/L (3.5-5.1); Sodium 141 mEq/L (136-145); eGFR For African Americans > 60 (> 60); eGFR For Non-African Americans 53 (> 60)
[2020-10-09 06:08] LABS: Platelet Estimate Normal (Normal); Smudge Cells Present (Not Present); Toxic Granulation Present (Not Present)
[2020-10-09] MEDS: *HR* Enoxaparin 40 MG/0.4 ML SYRINGE SQ SCH (06:44)
[2020-10-09] MEDS: Insulin LISPRO 300 UNITS/3 ML VIAL SUBQ SCH ×4 (09:02→20:56)
[2020-10-09] MEDS: Isosorbide MONOnitrate (24 HR) 60 MG TAB.ER.24H PO SCH (09:04)
[2020-10-09] MEDS: Insulin DETEMIR 100 UNIT/ML X5UNITS SUBQ SCH ×2 (09:04→20:56)
[2020-10-09] MEDS: amLODIPine 5 MG TABLET PO SCH (09:04)
[2020-10-09] MEDS: Zinc Sulfate 220 MG CAPSULE PO SCH (09:05)
[2020-10-09] MEDS: Finasteride 5 MG TABLET PO SCH (09:05)
[2020-10-09] MEDS: carvediloL 6.25 MG TABLET PO SCH ×2 (09:05→17:10)
[2020-10-09] MEDS: Aspirin 81 MG TAB.CHEW PO SCH (09:05)
[2020-10-09] MEDS: Gabapentin 300 MG CAPSULE PO SCH ×3 (09:05→17:10)
[2020-10-09] MEDS: Brinzolamide 1% 10 ML BOTTLE BOTH EYES SCH ×2 (09:06→17:26)
[2020-10-09] MEDS: *HR* OxyCODONE/APAP 5/325 TABLET PO PRN (12:08)
[2020-10-09] MEDS: Latanoprost 2.5 ML BOTTLE BOTH EYES SCH (17:26)
[2020-10-10 03:30] LABS: Hematocrit 30.8 % (37.5-50.1); Hemoglobin 9.8 g/dL (12.9-16.9); Immature Granulocytes % 0.5 % (0-4); Lymphocytes # 0.4 K/mcL (0.6-4.6); Lymphocytes % 5.2 %; Mean Corpuscular HGB Conc 31.8 g/dL (31.6-35.5); Mean Corpuscular Hemoglobin 30.4 pg (28.0-33.3); Mean Corpuscular Volume 95.7 fL (83.0-100.0); Mean Platelet Volume 11.1 fL (9.4-12.4); Monocytes # 0.2 K/mcL (0.0-1.3); Monocytes % 2.3 %; Neutrophils # 6.7 K/mcL (1.6-8.9); Platelet Count 120 K/mcL (140-400); Red Blood Count 3.22 M/mcL (4.19-5.50); Red Cell Distribution Width 13.3 % (11.5-14.5); White Blood Count 7.3 K/mcL (4.3-11.1)
[2020-10-10 03:49] LABS: Calcium 7.8 mg/dL (8.6-10.3); Magnesium 2.8 mg/dL (1.6-2.6); Phosphorous 3.7 mg/dL (2.7-4.5); Potassium 4.7 mEq/L (3.5-5.1)
[2020-10-10] MEDS: *HR* OxyCODONE/APAP 5/325 TABLET PO PRN (04:16)
[2020-10-10] MEDS: *HR* Enoxaparin 40 MG/0.4 ML SYRINGE SQ SCH (05:30)
[2020-10-10] MEDS: amLODIPine 5 MG TABLET PO SCH (08:22)
[2020-10-10] MEDS: Isosorbide MONOnitrate (24 HR) 60 MG TAB.ER.24H PO SCH (08:22)
[2020-10-10] MEDS: Aspirin 81 MG TAB.CHEW PO SCH (08:22)
[2020-10-10] MEDS: Zinc Sulfate 220 MG CAPSULE PO SCH (08:22)
[2020-10-10] MEDS: Finasteride 5 MG TABLET PO SCH (08:22)
[2020-10-10] MEDS: carvediloL 6.25 MG TABLET PO SCH ×2 (08:22→16:29)
[2020-10-10] MEDS: Insulin DETEMIR 100 UNIT/ML X5UNITS SUBQ SCH ×2 (08:23→21:28)
[2020-10-10] MEDS: Gabapentin 300 MG CAPSULE PO SCH ×3 (08:23→21:25)
[2020-10-10] MEDS: Insulin LISPRO 300 UNITS/3 ML VIAL SUBQ SCH ×4 (08:23→21:27)
[2020-10-10] MEDS: Brinzolamide 1% 10 ML BOTTLE BOTH EYES SCH ×2 (08:24→21:24)
[2020-10-10] MEDS: Latanoprost 2.5 ML BOTTLE BOTH EYES SCH (16:46)
[2020-10-11] MEDS: *HR* Enoxaparin 40 MG/0.4 ML SYRINGE SQ SCH (05:54)
[2020-10-11 07:44] LABS: Basophils % 0.1 %; Hematocrit 30.7 % (37.5-50.1); Immature Granulocytes % 0.4 % (0-4); Lymphocytes # 0.7 K/mcL (0.6-4.6); Lymphocytes % 7.1 %; Mean Corpuscular HGB Conc 32.6 g/dL (31.6-35.5); Mean Corpuscular Hemoglobin 30.5 pg (28.0-33.3); Mean Corpuscular Volume 93.6 fL (83.0-100.0); Mean Platelet Volume 10.8 fL (9.4-12.4); Monocytes # 0.5 K/mcL (0.0-1.3); Monocytes % 5.2 %; Neutrophils # 8.5 K/mcL (1.6-8.9); Platelet Count 141 K/mcL (140-400); Red Blood Count 3.28 M/mcL (4.19-5.50); Segmented Neutrophils % 87.2 %; White Blood Count 9.7 K/mcL (4.3-11.1)
[2020-10-11 08:01] LABS: Calcium 7.7 mg/dL (8.6-10.3); Magnesium 3.1 mg/dL (1.6-2.6); Phosphorous 3.4 mg/dL (2.7-4.5); Potassium 4.2 mEq/L (3.5-5.1)
[2020-10-11] MEDS: Aspirin 81 MG TAB.CHEW PO SCH (08:26)
[2020-10-11] MEDS: Isosorbide MONOnitrate (24 HR) 60 MG TAB.ER.24H PO SCH (08:26)
[2020-10-11] MEDS: amLODIPine 5 MG TABLET PO SCH (08:26)
[2020-10-11] MEDS: carvediloL 6.25 MG TABLET PO SCH ×2 (08:26→15:54)
[2020-10-11] MEDS: Finasteride 5 MG TABLET PO SCH (08:26)
[2020-10-11] MEDS: Insulin DETEMIR 100 UNIT/ML X5UNITS SUBQ SCH ×2 (08:26→22:04)
[2020-10-11] MEDS: Gabapentin 300 MG CAPSULE PO SCH ×3 (08:26→22:03)
[2020-10-11] MEDS: Zinc Sulfate 220 MG CAPSULE PO SCH (08:27)
[2020-10-11] MEDS: Brinzolamide 1% 10 ML BOTTLE BOTH EYES SCH ×2 (08:27→22:07)
[2020-10-11] MEDS: Insulin LISPRO 300 UNITS/3 ML VIAL SUBQ SCH ×4 (08:28→22:04)
[2020-10-11] MEDS: Latanoprost 2.5 ML BOTTLE BOTH EYES SCH (15:54)
[2020-10-12] MEDS: *HR* Enoxaparin 40 MG/0.4 ML SYRINGE SQ SCH (05:24)
[2020-10-12 05:47] LABS: Hematocrit 31.2 % (37.5-50.1); Hemoglobin 10.3 g/dL (12.9-16.9); Immature Granulocytes % 0.4 % (0-4); Lymphocytes # 0.7 K/mcL (0.6-4.6); Lymphocytes % 8.7 %; Mean Corpuscular Hemoglobin 30.8 pg (28.0-33.3); Mean Corpuscular Volume 93.4 fL (83.0-100.0); Mean Platelet Volume 10.9 fL (9.4-12.4); Monocytes # 0.4 K/mcL (0.0-1.3); Monocytes % 5.2 %; Neutrophils # 6.8 K/mcL (1.6-8.9); Platelet Count 134 K/mcL (140-400); Red Blood Count 3.34 M/mcL (4.19-5.50); Segmented Neutrophils % 85.7 %; White Blood Count 7.9 K/mcL (4.3-11.1)
[2020-10-12 06:40] LABS: Calcium 7.9 mg/dL (8.6-10.3); Magnesium 3.1 mg/dL (1.6-2.6); Phosphorous 3.3 mg/dL (2.7-4.5); Potassium 4.6 mEq/L (3.5-5.1)
[2020-10-12] MEDS: Insulin LISPRO 300 UNITS/3 ML VIAL SUBQ SCH ×4 (07:47→21:51)
[2020-10-12] MEDS: Aspirin 81 MG TAB.CHEW PO SCH (09:02)
[2020-10-12] MEDS: Isosorbide MONOnitrate (24 HR) 60 MG TAB.ER.24H PO SCH (09:03)
[2020-10-12] MEDS: Finasteride 5 MG TABLET PO SCH (09:03)
[2020-10-12] MEDS: amLODIPine 5 MG TABLET PO SCH (09:03)
[2020-10-12] MEDS: carvediloL 6.25 MG TABLET PO SCH ×2 (09:04→17:29)
[2020-10-12] MEDS: Zinc Sulfate 220 MG CAPSULE PO SCH (09:04)
[2020-10-12] MEDS: Gabapentin 300 MG CAPSULE PO SCH ×3 (09:04→21:50)
[2020-10-12] MEDS: Brinzolamide 1% 10 ML BOTTLE BOTH EYES SCH ×2 (09:05→21:53)
[2020-10-12] MEDS: Insulin DETEMIR 100 UNIT/ML X5UNITS SUBQ SCH ×2 (09:19→21:52)
[2020-10-12] MEDS: Latanoprost 2.5 ML BOTTLE BOTH EYES SCH (17:28)
[2020-10-13 02:52] LABS: Eosinophils % 0.3 %; Hematocrit 28.5 % (37.5-50.1); Hemoglobin 9.4 g/dL (12.9-16.9); Immature Granulocytes % 0.3 % (0-4); Lymphocytes # 0.6 K/mcL (0.6-4.6); Mean Corpuscular Hemoglobin 30.9 pg (28.0-33.3); Mean Corpuscular Volume 93.8 fL (83.0-100.0); Mean Platelet Volume 10.8 fL (9.4-12.4); Monocytes # 0.4 K/mcL (0.0-1.3); Monocytes % 5.7 %; Neutrophils # 5.8 K/mcL (1.6-8.9); Platelet Count 117 K/mcL (140-400); Red Blood Count 3.04 M/mcL (4.19-5.50); Segmented Neutrophils % 84.7 %; White Blood Count 6.9 K/mcL (4.3-11.1)
[2020-10-13 03:09] LABS: Calcium 7.8 mg/dL (8.6-10.3); Magnesium 2.8 mg/dL (1.6-2.6); Potassium 4.6 mEq/L (3.5-5.1)
[2020-10-13] MEDS: *HR* Enoxaparin 40 MG/0.4 ML SYRINGE SQ SCH (06:22)
[2020-10-13] MEDS: Insulin LISPRO 300 UNITS/3 ML VIAL SUBQ SCH ×4 (07:50→22:02)
[2020-10-13] MEDS: carvediloL 6.25 MG TABLET PO SCH ×2 (07:54→16:35)
[2020-10-13] MEDS: Gabapentin 300 MG CAPSULE PO SCH ×3 (07:55→22:00)
[2020-10-13] MEDS: Aspirin 81 MG TAB.CHEW PO SCH (07:55)
[2020-10-13] MEDS: Finasteride 5 MG TABLET PO SCH (07:56)
[2020-10-13] MEDS: Zinc Sulfate 220 MG CAPSULE PO SCH (07:56)
[2020-10-13] MEDS: amLODIPine 5 MG TABLET PO SCH (07:56)
[2020-10-13] MEDS: Isosorbide MONOnitrate (24 HR) 60 MG TAB.ER.24H PO SCH (07:57)
[2020-10-13] MEDS: Insulin DETEMIR 100 UNIT/ML X5UNITS SUBQ SCH ×2 (07:59→22:01)
[2020-10-13] MEDS: Brinzolamide 1% 10 ML BOTTLE BOTH EYES SCH ×2 (08:15→22:01)
[2020-10-13] MEDS: Latanoprost 2.5 ML BOTTLE BOTH EYES SCH (18:50)
[2020-10-14] MEDS: *HR* Enoxaparin 40 MG/0.4 ML SYRINGE SQ SCH (05:09)
[2020-10-14] MEDS: Gabapentin 300 MG CAPSULE PO SCH ×3 (09:23→21:10)
[2020-10-14] MEDS: Aspirin 81 MG TAB.CHEW PO SCH (09:23)
[2020-10-14] MEDS: Isosorbide MONOnitrate (24 HR) 60 MG TAB.ER.24H PO SCH (09:25)
[2020-10-14] MEDS: carvediloL 6.25 MG TABLET PO SCH ×2 (09:25→18:04)
[2020-10-14] MEDS: Finasteride 5 MG TABLET PO SCH (09:25)
[2020-10-14] MEDS: amLODIPine 5 MG TABLET PO SCH (09:25)
[2020-10-14] MEDS: Zinc Sulfate 220 MG CAPSULE PO SCH (09:25)
[2020-10-14] MEDS: Brinzolamide 1% 10 ML BOTTLE BOTH EYES SCH ×2 (09:28→21:10)
[2020-10-14] MEDS: Insulin LISPRO 300 UNITS/3 ML VIAL SUBQ SCH ×4 (09:31→21:11)
[2020-10-14] MEDS: Insulin DETEMIR 100 UNIT/ML X5UNITS SUBQ SCH ×2 (09:39→21:11)
[2020-10-14] MEDS: Latanoprost 2.5 ML BOTTLE BOTH EYES SCH (17:24)
[2020-10-14 19:51] VITALS: BP 140/70; PULSE 62; TEMP 98.6; O2SAT 93
== END 2020-10-14 22:30 | disposition critical access hospital (66) | DRG 871 ==
LOC: SUATTDRO 02:31 → 2NENU 02:31
PROVIDERS: ADMIT Student in an Organized Health Care Education/Training Program; ATTEND Internal Medicine